=== PATIENT | male | born 1940 | race Caucasian/White ===

== ENCOUNTER 2016-06-30 09:20 | Inpatient (IN) | payer MEDICARE, BC ==
--- NOTE | 2016-06-30 09:54 | EDM.PDOC ---
[id number] 4d HEMATOMA ON RT LEG FROM THIGH TO KNEE STARTED ANGE Time Seen by Provider: 06/30/16 09:30 Source: Reports: Patient, Family History Limitations: Reports: No limitations - History of Present Illness INITIAL COMMENTS - FREE TEXT/NARRATIVE: 75-year-old male came in to the Coumadin clinic this morning for a routine pro time was feeling poorly, lightheaded and nauseous and has a persistent pain in his right thigh from a direct dramatic injury from a fall 5 days ago. His protime is 4.5, however with his lightheadedness and nauseous feeling he felt he should be seen in the emergency room. There is a small amount of bruising developing on the upper aspect of the injury. He is able to ambulate with discomfort. Occurred When: other (Injury occurred 5 days ago) Method of Injury: direct blow Severity: moderate Pain/Injury Location: Reports: lower extremity, right Consciousness: Reports: no loss of consciousness Associated Symptoms: Reports: lightheadedness, nausea/vomiting, trouble walking. Denies: abdominal pain Allergies/ADRs: Allergies lorazepam [From Ativan] Adverse Reaction (Severe, Verified 06/30/16 09:33) Change Mental Status Home Medications: Ambulatory Orders Aspirin [Aspirin EC] 81 mg PO DAILY 02/24/13 [Confirmed 06/30/16] Folic Acid 1 mg PO DAILY 02/24/13 [Confirmed 06/30/16] Metoprolol Tartrate [Lopressor] 25 mg PO DAILY 02/24/13 [Confirmed 06/30/16] Multivit with Calcium,Iron,Min [Essential Daily] 1 each PO DAILY 02/24/13 [ Confirmed 06/30/16] Ranitidine [Zantac] 150 mg PO DAILY 02/24/13 [Confirmed 06/30/16] Sertraline HCl 150 mg PO DAILY 02/24/13 [Confirmed 06/30/16] Thiamine [Vitamin B-1] 100 mg PO DAILY 02/24/13 [Confirmed 06/30/16] Timolol Maleate [Timoptic 0.5% Ophth Soln] 1 drop EYEBOTH BID 02/24/13 [ Confirmed 06/30/16] Warfarin Sodium 5 mg PO ASDIRECTED 02/24/13 [Confirmed 06/30/16] Warfarin Sodium 7.5 mg PO ASDIRECTED 02/24/13 [Confirmed 06/30/16] amLODIPine Besylate [Amlodipine Besylate] 10 mg PO DAILY 02/24/13 [Confirmed 06/13] clonazePAM [Clonazepam] 0.5 mg PO TID PRN 02/24/13 [Confirmed 06/30/16] Brimonidine Tartrate [Brimonidine Tartrate 0.2% Ophth Soln] 1 drop EYEBOTH BID 08/28/14 [Confirmed 06/30/16] Latanoprost [Xalatan 0.005% Ophth Soln] 1 drop EYEBOTH BID 08/28/14 [Confirmed 06/30/16] Moxifloxacin [Vigamox 0.5% Ophth Soln] 1 drop EYELF BID 12/12/15 [Confirmed 06/13] prednisoLONE Acetate [Prednisolone Acetate] 1 drop EYELF BID 12/12/15 [ Confirmed 06/30/16] Past Medical History HEENT History: Reports: Glaucoma 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- Cardiovascular History: Reports: Other (see below) Other Cardiovascular History: aortic dissection Gastrointestinal History: Reports: Other (see below) Other Gastrointestinal History: "Upset stomach easily" Musculoskeletal History: Reports: Arthritis, Fracture Psychiatric History: Reports: Anxiety, Panic attack Hematologic History: Reports: Blood transfusion(s) Dermatologic History: Reports: Psoriasis - Infectious Disease History Infectious Disease History: Reports: Chicken pox - Past Surgical History HEENT Surgical History: Reports: Eye surgery Cardiovascular Surgical History: Reports: Valve replacement, Other (see below) Other Cardiovascular Surgeries/Procedures: aortic graft Musculoskeletal Surgical History: Reports: Hip replacement Social & Family History - Family History Family Medical History: Noncontributory - Tobacco Use Smoking Status *Q: Current Every Day Smoker Years of Tobacco use: 10 Packs/Tins Daily: 0.2 Used Tobacco, but Quit: No Second Hand Smoke Exposure: No - Caffeine Use Caffeine Use: Reports: Coffee Other Caffeine Use: 2-3 cups a day - Alcohol Use Days Per Week of Alcohol Use: 5 Number of Drinks Per Day: 2 Total Drinks Per Week: 10 - Recreational Drug Use Recreational Drug Use: No Review of Systems - Review of Systems Review Of Systems: See Below Constitutional: Denies: fever Mouth/Throat: Reports: no symptoms Respiratory: Denies: Shortness of Breath Cardiovascular: Denies: chest pain GI/Abdominal: Reports: Nausea. Denies: Abdominal pain Musculoskeletal: Reports: leg pain Skin: Reports: pallor, diaphoresis Neurological: Reports: Difficulty Walking, Weakness Psychiatric: Reports: no symptoms Trauma Exam - Physical Exam Exam: See Below Exam Limited By: No limitations General Appearance: Reports: alert, no apparent distress Head: Reports: atraumatic Respiratory Exam: Reports: no respiratory distress Cardiovascular: Reports: regular rate, rhythm Extremities: Reports: other (The right quadricep is slightly swollen and tight with some upper bruising compared to the left. It is very tender to palpation.) Neurologic: Reports: other (Patient had a moderate vagal episode in the emergency waiting area with some pallor and diaphoresis and hypotension. After 10 minutes his blood pressure normalized to 100/60. His symptoms improved.) Skin: Reports: Diaphoresis, Pallor Course - Vital Signs Last Recorded V/S: Last Vital Signs Temp 98.8 F 06/30/16 15:56 Pulse 89 06/30/16 15:56 Resp 16 06/30/16 15:56 BP 103/68 06/30/16 15:56 Pulse Ox 98 06/30/16 15:56 Orthostatic Blood Pressure [ 101/41 Standing] Orthostatic Blood Pressure [ 103/62 Sitting] Orthostatic Blood Pressure [ 108/65 Supine] - Orders/Labs/Meds Orders: Medication Orders Acetaminophen (Tylenol) 650 mg PO Q4H [facility] Aspirin (Halfprin) 81 mg PO DAILY [facility] Brimonidine Tartrate (Alphagan 0.2% Ophth Soln) 0 ml EYEBOTH BID [facility] Diazepam (Valium) 2 mg PO Q4H [facility] Docusate Sodium (Colace) 100 mg PO BID PRN PRN Reason: Constipation Sodium Chloride (Normal Saline) 1,000 mls @ 125 mls/hr IV ASDIRECTED [facility] Latanoprost (Xalatan 0.005% Ophth Soln) 0 ml EYEBOTH BID [facility] Magnesium Hydroxide (Milk Of Magnesia) 30 ml PO Q12H PRN PRN Reason: Constipation Moxifloxacin HCl (Vigamox 0.5% Ophth Soln) 0 ml EYELF BID [facility] Nicotine (Habitrol) 7 mg TRDERM DAILY [facility] Nicotine (Nicotrol) 10 mg INH Q1H PRN PRN Reason: Other Ondansetron HCl (Zofran) 4 mg IV Q4H PRN PRN Reason: Nausea/Vomiting Polyethylene Glycol (Miralax) 17 gm PO DAILY PRN PRN Reason: Constipation Prednisolone Acetate (Pred Forte 1% Ophth Susp) 0 ml EYELF BID [facility] Ranitidine HCl (Zantac) 150 mg PO DAILY [facility] Sertraline HCl (Zoloft) 150 mg PO DAILY [facility] Sodium Chloride (Saline Flush) 10 ml FLUSH ASDIRECTED PRN PRN Reason: Keep Vein Open Timolol Maleate (Timoptic 0.5% Ophth Soln) 0 ml EYEBOTH BID [facility] Labs: Laboratory Tests 06/30/16 06/30/16 Range/Units 10:02 10:02 WBC 10.0 (4.5-11.0) K/uL RBC 3.12 L (4.30-5.90) M/uL Hgb 10.3 L (12.0-15.0) g/dL Hct 31.2 L (40.0-54.0) % MCV 100 H (80-98) fL MCH 33 H (27-31) pg MCHC 33 (32-36) % Plt Count 315 (150-400) K/uL Neut % (Auto) 78 H (36-66) % Lymph % (Auto) 9 L (24-44) % [place] % (Auto) 11 H (2-6) % Eos % (Auto) 1 L (2-4) % Baso % (Auto) 0 (0-1) % Sodium 135 L (140-148) mmol/L Potassium 4.2 (3.6-5.2) mmol/L Chloride 101 (100-108) mmol/L Carbon Dioxide 24 (21-32) mmol/L Anion Gap 14.2 H (5.0-14.0) mmol/L BUN 16 D (7-18) mg/dL Creatinine 1.4 H D (0.8-1.3) mg/dL Est Cr Clr Drug Dosing 52.19 mL/min Estimated GFR (MDRD) 49 L (>60) Glucose 105 (74-106) mg/dL Calcium 8.6 (8.5-10.1) mg/dL Meds: Medications Generic Name Dose Route Start Last Admin Trade Name Freq PRN Reason Stop Dose Admin Acetaminophen 650 mg 06/30/16 16:00 Tylenol PO Q4H [facility] Aspirin 81 mg 07/01/16 09:00 Halfprin PO DAILY [facility] Brimonidine Tartrate 0 ml 06/30/16 21:00 Alphagan 0.2% Ophth Soln EYEBOTH BID [facility] Diazepam 2 mg 06/30/16 19:00 Valium PO Q4H [facility] Docusate Sodium 100 mg 06/30/16 15:31 Colace PO BID PRN Constipation Sodium Chloride 1,000 mls @ 125 mls/hr 06/30/16 15:31 Normal Saline IV ASDIRECTED [facility] Latanoprost 0 ml 06/30/16 21:00 Xalatan 0.005% Ophth Soln EYEBOTH BID [facility] Magnesium Hydroxide 30 ml 06/30/16 15:31 Milk Of Magnesia PO Q12H PRN Constipation Moxifloxacin HCl 0 ml 06/30/16 21:00 Vigamox 0.5% Ophth Soln EYELF BID [facility] Nicotine 7 mg 06/30/16 16:00 Habitrol TRDERM DAILY [facility] Nicotine 10 mg 06/30/16 15:31 Nicotrol INH Q1H PRN Other Ondansetron HCl 4 mg 06/30/16 15:31 Zofran IV Q4H PRN Nausea/Vomiting Polyethylene Glycol 17 gm 06/30/16 15:31 Miralax PO DAILY PRN Constipation Prednisolone Acetate 0 ml 06/30/16 21:00 Pred Forte 1% Ophth Susp EYELF BID [facility] Ranitidine HCl 150 mg 07/01/16 09:00 Zantac PO DAILY [facility] Sertraline HCl 150 mg 07/01/16 09:00 Zoloft PO DAILY [facility] Sodium Chloride 10 ml 06/30/16 15:31 Saline Flush FLUSH ASDIRECTED PRN Keep Vein Open Timolol Maleate 0 ml 06/30/16 21:00 Timoptic 0.5% Ophth Soln EYEBOTH BID [facility] Discontinued Medications Generic Name Dose Route Start Last Admin Trade Name Freq PRN Reason Stop Dose Admin Acetaminophen 1,000 mg 06/30/16 13:57 06/30/16 14:34 Tylenol Extra Strength PO 06/30/16 13:58 1,000 mg ONETIME ONE Administration Acetaminophen 650 mg 06/30/16 14:30 Tylenol PO 06/30/16 14:31 NOW ONE Diazepam 2 mg 06/30/16 15:00 06/30/16 15:08 Valium PO 06/30/16 15:01 2 mg ONETIME ONE Administration Sodium Chloride 500 mls @ 1,000 mls/hr 06/30/16 10:45 06/30/16 10:41 Normal Saline IV 1,000 mls/hr ASDIRECTED [facility] Administration - Re-Assessments/Exams Free Text/Narrative Re-Assessment/Exam: 06/30/16 09:52 Patient hasn't vagal symptoms while in the waiting room and over the Coumadin clinic and his initial blood pressure was 79/46 so IV access was obtained. However he improved to 100/60 after just a few minutes. A CBC and BMP were obtained. 06/30/16 12:50 CBC revealed a hemoglobin of 10.3, compared to 13 5 months ago. Blood pressure continued to fluctuate between 80 and 100 systolic. GFR was 49 which is lower than his previous levels. 06/30/16 16:04 After 500 mL bolus of normal saline, orthostatic blood pressures were obtained and his pulse went from 70 to lying to [address] Kwan of the hospitalist service to assess the patient for admission for orthostatic hypotension, leg hematoma and anemia. Departure - Departure Time of Disposition: 15:48 Disposition: Admitted As Inpatient 65 Condition: fair Clinical Impression: Orthostatic hypotension Hematoma of right lower extremity Qualifiers: Encounter type: initial encounter Qualified Code(s): S80.11XA - Contusion of right lower leg, initial encounter Anemia Qualifiers: Anemia type: unspecified type Qualified Code(s): D64.9 - Anemia, unspecified
[2016-06-30] MEDS ORDERED: Sodium Chloride 0.9% 500 ML IV SCH (10:45)
[2016-06-30] MEDS ORDERED: Acetaminophen 500 MG Tab PO ONE (13:57)
[2016-06-30] MEDS ORDERED: Acetaminophen 325 MG Tab PO ONE (14:30)
--- NOTE | 2016-06-30 14:49 | PCM.HP ---
H&P History of Present Illness - General Date of Service: 06/30/16 Admit Problem/Dx: Admission Diagnosis/Problem Admission Diagnosis/Problem Hematoma Source of Information: Patient, Family, Old records, Provider History Limitations: Reports: No limitations - History of Present Illness Initial Comments - Free Text/Narative: This patient is a 75-year-old gentleman admitted through the emergency department with weakness, lightheadedness, and hypotension secondary to a large hematoma of his right leg. 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 5 days ago he fell while getting out of bed and hit his right leg, the past 5 days since the injury he's had progressive swelling and pain in his right thigh. He presented to the Coumadin clinic this morning and his INR was found to be elevated at greater than 4. He was referred to the emergency department and on laboratory testing was found to have a significant decrease in hemoglobin since his last outpatient tests. He' s received some IV fluids but remains weak and lightheaded , with a persistent drop in orthostatic blood pressure. Right Leg Pain Score (Numeric/FACES): 7 - Related Data Allergies/Adverse Reactions: Allergies Allergy/AdvReac Type Severity Reaction Status Date / Time lorazepam [From Ativan] AdvReac Severe Change Verified 06/30/16 09:33 Mental Status Home Medications: Home Meds Aspirin [Aspirin EC] 81 mg PO DAILY 02/24/13 [History] Folic Acid 1 mg PO DAILY 02/24/13 [History] Metoprolol Tartrate [Lopressor] 25 mg PO DAILY 02/24/13 [History] Multivit with Calcium,Iron,Min [Essential Daily] 1 each PO DAILY 02/24/13 [ History] Ranitidine [Zantac] 150 mg PO DAILY 02/24/13 [History] Sertraline HCl 150 mg PO DAILY 02/24/13 [History] Thiamine [Vitamin B-1] 100 mg PO DAILY 02/24/13 [History] Timolol Maleate [Timoptic 0.5% Ophth Soln] 1 drop EYEBOTH BID 02/24/13 [History] Warfarin Sodium 5 mg PO ASDIRECTED 02/24/13 [History] Warfarin Sodium 7.5 mg PO ASDIRECTED 02/24/13 [History] amLODIPine Besylate [Amlodipine Besylate] 10 mg PO DAILY 02/24/13 [History] clonazePAM [Clonazepam] 0.5 mg PO TID PRN 02/24/13 [History] Brimonidine Tartrate [Brimonidine Tartrate 0.2% Ophth Soln] 1 drop EYEBOTH BID 08/28/14 [History] Latanoprost [Xalatan 0.005% Ophth Soln] 1 drop EYEBOTH BID 08/28/14 [History] Moxifloxacin [Vigamox 0.5% Ophth Soln] 1 drop EYELF BID 12/12/15 [History] prednisoLONE Acetate [Prednisolone Acetate] 1 drop EYELF BID 12/12/15 [History] Past Medical History HEENT History: Reports: Glaucoma 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- Cardiovascular History: Reports: Other (see below) Other Cardiovascular History: aortic dissection Gastrointestinal History: Reports: Other (see below) Other Gastrointestinal History: "Upset stomach easily" Musculoskeletal History: Reports: Arthritis, Fracture Psychiatric History: Reports: Anxiety, Panic attack Hematologic History: Reports: Blood transfusion(s) Dermatologic History: Reports: Psoriasis - Infectious Disease History Infectious Disease History: Reports: Chicken pox - Past Surgical History HEENT Surgical History: Reports: Eye surgery Cardiovascular Surgical History: Reports: Valve replacement, Other (see below) Other Cardiovascular Surgeries/Procedures: aortic graft Musculoskeletal Surgical History: Reports: Hip replacement Social & Family History - Family History Family Medical History: Noncontributory - Tobacco Use Smoking Status *Q: Current Every Day Smoker Years of Tobacco use: 10 Packs/Tins Daily: 0.2 Used Tobacco, but Quit: No Second Hand Smoke Exposure: No - Caffeine Use Caffeine Use: Reports: Coffee Other Caffeine Use: 2-3 cups a day - Alcohol Use Days Per Week of Alcohol Use: 5 Number of Drinks Per Day: 2 Total Drinks Per Week: 10 - Recreational Drug Use Recreational Drug Use: No H&P Review of Systems - Review of Systems: Review Of Systems: See Below General: Reports: weakness. Denies: fever, chills HEENT: Reports: no symptoms Pulmonary: Reports: No Symptoms Cardiovascular: Reports: lightheadedness. Denies: chest pain, palpitations, dyspnea on exertion, orthopnea, PND, edema Gastrointestinal: Reports: No symptoms Genitourinary: Reports: no symptoms Musculoskeletal: Reports: leg pain Skin: Reports: no symptoms Psychiatric: Reports: no symptoms Neurological: Reports: No Symptoms Hematologic/Lymphatic: Reports: no symptoms Immunologic: Reports: no symptoms Exam - Exam Exam: See Below - Vital Signs Vital Signs: Last Vital Signs Temp 97.7 F 06/30/16 09:44 Pulse 72 06/30/16 13:57 Resp 15 06/30/16 13:57 BP 97/60 06/30/16 13:57 Pulse Ox 91 L 06/30/16 13:57 Orthostatic Blood Pressure [ 101/41 Standing] Orthostatic Blood Pressure [ 103/62 Sitting] Orthostatic Blood Pressure [ 108/65 Supine] Weight: 185 lb - Exam Quality Assessment: DVT prophylaxis General: alert, oriented, cooperative HEENT: Conjunctiva clear, EOMI, Hearing intact, Mucosa moist & pink, Nares patent, Normal nasal septum, Posterior pharynx clear, Pupils equal, Pupils reactive Neck: supple, trachea midline, +2 carotid pulse wo bruit Lungs: Clear to auscultation, Normal respiratory effort Cardiovascular: regular rate, regular rhythm, normal S1, normal S2, systolic murmur. No: diastolic murmur Abdomen: normal bowel sounds, soft Back Exam: normal inspection, full range of motion, NT Extremities: 3, normal inspection, 10 Skin: warm, dry, intact Neurological: cranial nerves intact, strength equal bilateral, normal speech, normal tone, sensation intact. No: focal deficit Neuro Extensive - Mental Status: alert, oriented x3, normal mood/affect, normal cognition, memory intact - Patient Data Lab Results last 24 hrs: Laboratory Results - last 24 hr 06/30/16 06/30/16 Range/Units 10:02 10:02 WBC 10.0 (4.5-11.0) K/uL RBC 3.12 L (4.30-5.90) M/uL Hgb 10.3 L (12.0-15.0) g/dL Hct 31.2 L (40.0-54.0) % MCV 100 H (80-98) fL MCH 33 H (27-31) pg MCHC 33 (32-36) % Plt Count 315 (150-400) K/uL Neut % (Auto) 78 H (36-66) % Lymph % (Auto) 9 L (24-44) % [place] % (Auto) 11 H (2-6) % Eos % (Auto) 1 L (2-4) % Baso % (Auto) 0 (0-1) % Sodium 135 L (140-148) mmol/L Potassium 4.2 (3.6-5.2) mmol/L Chloride 101 (100-108) mmol/L Carbon Dioxide 24 (21-32) mmol/L Anion Gap 14.2 H (5.0-14.0) mmol/L BUN 16 D (7-18) mg/dL Creatinine 1.4 H D (0.8-1.3) mg/dL Est Cr Clr Drug Dosing 52.19 mL/min Estimated GFR (MDRD) 49 L (>60) Glucose 105 (74-106) mg/dL Calcium 8.6 (8.5-10.1) mg/dL Result Diagrams: 06/30/16 10:02 06/30/16 10:02 *Q Meaningful Use (ADM) - VTE *Q VTE Criteria *Q: VTE Pharmacological Contraindications *Q: High INR Value - VTE Risk Assess *Q Each Risk Factor Represents 1 Point: History of Prior Major Surgery Total Score 1 Point Risk Factors: 1 Each Risk Factor Represents 2 Points: None Total Score 2 Point Risk Factors: 0 Each Risk Factor Represents 3 Points: Age 75 Years or Greater Total Score 3 Point Risk Factors: 3 Each Risk Factor Represents 5 Points: None Total Score 5 Point Risk Factors: 0 Venous Thromboembolism Risk Factor Score *Q: 4 - Stroke *Q Stroke Criteria *Q: - AMI *Q AMI Criteria *Q: Problem List Initiated/Reviewed/Updated: Yes Orders Last 24hrs: Active Orders 24 hr Category Date Time Status Patient Status Manage Transfer [TRANSFER] Routine ADT 06/30/16 14:32 Active Diazepam [Valium] Med 06/30/16 15:00 Once 2 mg PO ONETIME ONE Sodium Chloride 0.9% [Normal Saline] 500 ml Med 06/30/16 10:45 Active IV ASDIRECTED Resuscitation Status Routine Resus Stat 06/30/16 14:34 Ordered Medication Orders Diazepam (Valium) 2 mg PO ONETIME ONE Stop: 06/30/16 15:01 Sodium Chloride (Normal Saline) 500 mls @ 1,000 mls/hr IV ASDIRECTED [facility] Last Admin: 06/30/16 10:41 Dose: 1,000 mls/hr Assessment/Plan Comment:: ASSESSMENT AND PLAN LARGE RIGHT LEG HEMATOMA-likely has had ongoing bleeding over the past 5 days resulting in increased pain in the right leg as well as intravascular volume depletion and anemia. This morning was significantly weak and lightheaded, despite initial fluids in the emergency department he continues to experience significant orthostasis and weakness. We discussed management including ultrasound of the leg as well as surgical consult for possible debridement/ drainage. Patient does not want to consider these options, but is willing to discuss it further if there is evidence of ongoing bleeding or significant vascular compromise of the leg. -IV fluids for hydration -Serial hemoglobin levels -Physical therapy consult CHRONIC ANTICOAGULATION-use for management of a prosthetic mechanical heart felt. INR checked at the Coumadin clinic this morning and was found to be supratherapeutic. -Hold warfarin today -Recheck INR in the a.m. GENERALIZED WEAKNESS-likely secondary to anemia and intravascular volume depletion -Management as above MAINTENANCE ISSUES -DVT prophylaxis; current therapy with warfarin should provide adequate DVT prophylaxis -GI prophylaxis; continue outpatient H2 anayeli therapy -Rojas catheter; not indicated -Nutrition; regular diet -Nicotine dependence; 7 mg nicotinic patch CODE STATUS-full code ADMISSION STATUS-patient will be admitted to inpatient status, expect at least a 2 night hospital stay for evaluation and management of problems as outlined above. At the time of this admission I do not reasonably expected evaluation and management of this problem will require more than a 96 hour hospital stay. DISPOSITION-anticipate discharge to home after the hospital stay. PRIMARY CARE PROVIDER-Christopher Martinez
[2016-06-30] MEDS ORDERED: Diazepam 2 MG Tab PO ONE (15:00)
[2016-06-30] MEDS ORDERED: Ondansetron 4 MG/2 ML SDV IV PRN (15:31)
[2016-06-30] MEDS ORDERED: Nicotine 10 MG/Cartridge Inhaler 168 Cartridges/Box INH PRN (15:31)
[2016-06-30] MEDS ORDERED: Polyethylene Glycol 3350 Powder 17 GM Packet PO PRN (15:31)
[2016-06-30] MEDS ORDERED: Sodium Chloride 0.9% 1,000 ML IV SCH (15:31)
[2016-06-30] MEDS ORDERED: Magnesium Hydroxide 400 MG/5 ML Susp 30 ML Cup PO PRN (15:31)
[2016-06-30] MEDS ORDERED: Sodium Chloride 0.9% 10 ML Syringe FLUSH PRN (15:31)
[2016-06-30] MEDS ORDERED: Docusate Sodium 100 MG Cap PO PRN (15:31)
[2016-06-30] MEDS: Acetaminophen 325 MG Tab PO SCH ×3 (16:21→23:52)
[2016-06-30] MEDS: Nicotine 7 MG/24 Hr Patch TRDERM SCH (17:23)
[2016-06-30] MEDS: Brimonidine/Timolol 0.2%/0.5% Ophth Soln 5 ML Bottle EYELF SCH (17:25)
[2016-06-30] MEDS: DIFLUPREDNATE 0.05% EYELF SCH (17:28)
[2016-06-30] MEDS: Calcium Carbonate 500 MG Tab.Chew PO PRN (18:04)
[2016-06-30] MEDS: Diazepam 2 MG Tab PO SCH ×2 (19:18→22:00)
[2016-06-30] MEDS ORDERED: Moxifloxacin 0.5% Ophth Soln 3 ML Bottle EYELF SCH (21:00)
[2016-06-30] MEDS ORDERED: Timolol Maleate 0.5% Ophth Soln 5 ML Bottle EYEBOTH SCH (21:00)
[2016-06-30] MEDS ORDERED: prednisoLONE Acetate 1% Ophth Susp 10 ML Bottle EYELF SCH (21:00)
[2016-06-30] MEDS ORDERED: Brimonidine 0.2% Ophth Soln 5 ML Bottle EYEBOTH SCH (21:00)
[2016-06-30] MEDS: Latanoprost 0.005% Ophth Soln 2.5 ML Bottle EYELF SCH (22:00)
[2016-07-01] MEDS: Diazepam 2 MG Tab PO SCH ×3 (02:29→12:00)
[2016-07-01] MEDS: Acetaminophen 325 MG Tab PO SCH ×5 (05:12→20:02)
[2016-07-01] MEDS: Calcium Carbonate 500 MG Tab.Chew PO PRN (05:13)
[2016-07-01] MEDS: Brimonidine/Timolol 0.2%/0.5% Ophth Soln 5 ML Bottle EYELF SCH ×2 (08:58→14:33)
[2016-07-01] MEDS: DIFLUPREDNATE 0.05% EYELF SCH ×2 (08:58→14:33)
[2016-07-01] MEDS: Aspirin 81 MG Tab.EC PO SCH (09:00)
[2016-07-01] MEDS: Sertraline 50 MG Tab PO SCH (09:01)
[2016-07-01] MEDS: Nicotine 7 MG/24 Hr Patch TRDERM SCH (09:02)
[2016-07-01] MEDS ORDERED: HYDROmorphone 0.5 MG/0.5 ML Syringe IVPUSH PRN (12:25)
[2016-07-01] MEDS ORDERED: Warfarin 2.5 MG Tab PO ONE (13:30)
--- NOTE | 2016-07-01 13:54 | CR ---
Knee 3V Rt HISTORY: Persistent pain after a fall one week ago FINDINGS: No acute fracture or dislocation is identified. Bony structures are osteopenic. No joint space narro wing is noted. I see no joint effusion. Benign bone island is noted medial tibial plateau.. Soft ti ssues are unremarkable. IMPRESSION: No acute right knee abnormality identified. Possible osteopenia. Small benign bone islands medial ti bial plateau.
--- NOTE | 2016-07-01 13:55 | CR ---
Femur Min 2V Rt HISTORY: Persistent pain after a fall one week ago FINDINGS: No acute fracture or dislocation is identified. Bony architecture is preserved. Right total hip art hroplasty is noted. I see no evidence for loosening or other complication. There is no joint effusio n. Soft tissues are unremarkable. IMPRESSION: Right total hip arthroplasty. No fracture or other acute right femur abnormality identified.
[2016-07-01] MEDS: diphenhydrAMINE 25 MG Cap PO PRN ×2 (14:10→20:46)
[2016-07-01] MEDS: Diazepam 2 MG Tab PO PRN ×2 (14:11→20:46)
--- NOTE | 2016-07-01 17:40 | PCM.PN ---
- General Info Date of Service: 07/01/16 Functional Status: Reports: pain controlled, tolerating diet, ambulating, urinating - Review of Systems General: Reports: Weakness. Denies: Fever, Chills Pulmonary: Reports: no symptoms Cardiovascular: Reports: No Symptoms Gastrointestinal: Reports: No symptoms Musculoskeletal: Reports: leg pain Systems Review Comment:: This patient continues to experience right leg pain related to his hematoma. Hemoglobin has been stable since admission, showing no further evidence of active bleeding. Vital signs have been stable and he has remained afebrile. Because of ongoing pain with weightbearing x-rays of the right leg and knee have been obtained showing no acute fractures. - Patient Data Vitals - most recent: Last Vital Signs Temp 98.2 F 07/01/16 13:58 Pulse 93 07/01/16 13:58 Resp 16 07/01/16 13:58 BP 128/69 07/01/16 13:58 Pulse Ox 97 07/01/16 13:58 Weight - most recent: 186 lb 4.65 oz I&O - last 24 hours: Intake & Output 07/01/16 07/01/16 07/01/16 06:59 14:59 22:59 Intake Total 2907 400 1362 Output Total 875 1100 850 Balance 2032 -700 512 Lab Results last 24 hrs: Laboratory Results - last 24 hr 06/30/16 07/01/16 07/01/16 Range/Units 20:23 02:54 04:50 WBC 7.1 (4.5-11.0) K/uL RBC 2.78 L (4.30-5.90) M/uL Hgb 9.7 L 9.2 L (12.0-15.0) g/dL Hct 28.2 L (40.0-54.0) % MCV 101 H (80-98) fL MCH 33 H (27-31) pg MCHC 33 (32-36) % Plt Count 292 (150-400) K/uL Neut % (Auto) 71 H (36-66) % Lymph % (Auto) 15 L (24-44) % [place] % (Auto) 12 H (2-6) % Eos % (Auto) 2 (2-4) % Baso % (Auto) 1 (0-1) % PT (9.5-12.0) sec INR (0.80-1.20) Sodium (140-148) mmol/L Potassium (3.6-5.2) mmol/L Chloride (100-108) mmol/L Carbon Dioxide (21-32) mmol/L Anion Gap (5.0-14.0) mmol/L BUN (7-18) mg/dL Creatinine (0.8-1.3) mg/dL Est Cr Clr Drug Dosing mL/min Estimated GFR (MDRD) (>60) Glucose (74-106) mg/dL Calcium (8.5-10.1) mg/dL Urine Color Yellow Urine Appearance Clear Urine pH 6.5 (4.5-8.0) Ur Specific [place] 1.015 (1.008-1.030) Urine Protein Negative (NEGATIVE) mg/dL Urine Glucose (UA) Normal (NEGATIVE) mg/dL Urine Ketones Negative (NEGATIVE) mg/dL Urine Occult Blood Negative (NEGATIVE) Urine Nitrite Negative (NEGAITVE) Urine Bilirubin Negative (NEGATIVE) Urine Urobilinogen Normal (NORMAL) mg/dL Ur Leukocyte Esterase Negative (NEGATIVE) Urine RBC 0-5 (0-5) Urine WBC 0-5 (0-5) Ur Epithelial Cells Rare Amorphous Sediment Not seen Urine Bacteria Rare Urine Mucus Not seen 07/01/16 07/01/16 Range/Units 04:50 04:50 WBC (4.5-11.0) K/uL RBC (4.30-5.90) M/uL Hgb (12.0-15.0) g/dL Hct (40.0-54.0) % MCV (80-98) fL MCH (27-31) pg MCHC (32-36) % Plt Count (150-400) K/uL Neut % (Auto) (36-66) % Lymph % (Auto) (24-44) % [place] % (Auto) (2-6) % Eos % (Auto) (2-4) % Baso % (Auto) (0-1) % PT 24.0 H (9.5-12.0) sec INR 2.21 H (0.80-1.20) Sodium 140 (140-148) mmol/L Potassium 3.9 (3.6-5.2) mmol/L Chloride 107 (100-108) mmol/L Carbon Dioxide 24 (21-32) mmol/L Anion Gap 9.1 (5.0-14.0) mmol/L BUN 13 (7-18) mg/dL Creatinine 1.1 (0.8-1.3) mg/dL Est Cr Clr Drug Dosing 66.42 mL/min Estimated GFR (MDRD) > 60 (>60) Glucose 106 (74-106) mg/dL Calcium 8.3 L (8.5-10.1) mg/dL Urine Color Urine Appearance Urine pH (4.5-8.0) Ur Specific [place] (1.008-1.030) Urine Protein (NEGATIVE) mg/dL Urine Glucose (UA) (NEGATIVE) mg/dL Urine Ketones (NEGATIVE) mg/dL Urine Occult Blood (NEGATIVE) Urine Nitrite (NEGAITVE) Urine Bilirubin (NEGATIVE) Urine Urobilinogen (NORMAL) mg/dL Ur Leukocyte Esterase (NEGATIVE) Urine RBC (0-5) Urine WBC (0-5) Ur Epithelial Cells Amorphous Sediment Urine Bacteria Urine Mucus Med Orders - Current: Current Medications Acetaminophen (Tylenol) 650 mg PO Q4H [facility] Last Admin: 07/01/16 16:18 Dose: 650 mg Aspirin (Halfprin) 81 mg PO DAILY [facility] Last Admin: 07/01/16 09:00 Dose: 81 mg Brimonidine/Timolol (Combigan 0.2%/0.5% Ophth Soln) 0 ml EYELF BID@0800,1500 [facility] Last Admin: 07/01/16 14:33 Dose: 1 drop Calcium Carbonate/Glycine (Tums) 500 mg PO Q2H PRN PRN Reason: Indigestion Last Admin: 07/01/16 05:13 Dose: 500 mg Diazepam (Valium) 4 mg PO Q4H PRN PRN Reason: Anxiety Last Admin: 07/01/16 14:11 Dose: 4 mg Diphenhydramine HCl (Benadryl) 50 mg PO Q6H PRN PRN Reason: Insomnia Last Admin: 07/01/16 14:10 Dose: 50 mg Docusate Sodium (Colace) 100 mg PO BID PRN PRN Reason: Constipation Hydromorphone HCl (Dilaudid) 0.5 mg IVPUSH Q2H PRN PRN Reason: Pain Latanoprost (Xalatan 0.005% Ophth Soln) 0 ml EYELF BEDTIME [facility] Last Admin: 06/30/16 22:00 Dose: 1 drop Magnesium Hydroxide (Milk Of Magnesia) 30 ml PO Q12H PRN PRN Reason: Constipation Nicotine (Habitrol) 7 mg TRDERM DAILY [facility] Last Admin: 07/01/16 09:02 Dose: 7 mg Nicotine (Nicotrol) 10 mg INH Q1H PRN PRN Reason: Other Ondansetron HCl (Zofran) 4 mg IV Q4H PRN PRN Reason: Nausea/Vomiting Diflprednate Ophth ( Durezol) 0.05%Pom* * 0 each EYELF BID@0800,1500 [facility] Last Admin: 07/01/16 14:33 Dose: 1 each Polyethylene Glycol (Miralax) 17 gm PO DAILY PRN PRN Reason: Constipation Ranitidine HCl (Zantac) 150 mg PO DAILY [facility] Last Admin: 07/01/16 09:00 Dose: 150 mg Sertraline HCl (Zoloft) 150 mg PO DAILY [facility] Last Admin: 07/01/16 09:01 Dose: 150 mg Sodium Chloride (Saline Flush) 10 ml FLUSH ASDIRECTED PRN PRN Reason: Keep Vein Open Discontinued Medications Acetaminophen (Tylenol Extra Strength) 1,000 mg PO ONETIME ONE Stop: 06/30/16 13:58 Last Admin: 06/30/16 14:34 Dose: 1,000 mg Acetaminophen (Tylenol) 650 mg PO NOW ONE Stop: 06/30/16 14:31 Last Admin: 06/30/16 21:54 Dose: Not Given Diazepam (Valium) 2 mg PO ONETIME ONE Stop: 06/30/16 15:01 Last Admin: 06/30/16 15:08 Dose: 2 mg Diazepam (Valium) 2 mg PO Q4H [facility] Last Admin: 07/01/16 12:00 Dose: 2 mg Sodium Chloride (Normal Saline) 500 mls @ 1,000 mls/hr IV ASDIRECTED [facility] Last Admin: 06/30/16 10:41 Dose: 1,000 mls/hr Sodium Chloride (Normal Saline) 1,000 mls @ 125 mls/hr IV ASDIRECTED [facility] Last Admin: 06/30/16 23:39 Dose: 125 mls/hr Warfarin Sodium (Coumadin) 7.5 mg PO ONETIME ONE Stop: 07/01/16 13:31 Last Admin: 07/01/16 14:10 Dose: 7.5 mg - Exam Quality Assessment: DVT prophylaxis General: alert, oriented, cooperative, mild distress Lungs: Clear to auscultation, Normal respiratory effort Cardiovascular: Regular Rate, Regular Rhythm, No Murmurs Abdomen: bowel sounds present, soft, no tenderness, no distension Extremities: edema, other (Pain and swelling right leg) Skin: warm, dry, intact, ecchymosis - Problem List Review Problem List Initiated/Reviewed/Updated: Yes - My Orders Last 24 Hours: My Active Orders 06/30/16 17:43 Calcium Carbonate [Tums] 500 mg PO Q2H PRN 06/30/16 18:00 Brimonidine/Timolol [Combigan 0.2%/0.5% Ophth Soln] 0 ml EYELF BID@0800,1500 Patient's Own Medication [Ptom] 0 each EYELF BID@0800,1500 07/01/16 12:20 diphenhydrAMINE [Benadryl] 50 mg PO Q6H PRN Convert IV to Saline Lock [OM.PC] Routine 07/01/16 12:21 Diazepam [Valium] 4 mg PO Q4H PRN 07/01/16 12:25 HYDROmorphone [Dilaudid] 0.5 mg IVPUSH Q2H PRN 07/02/16 05:00 BASIC METABOLIC PANEL,BMP [CHEM] Timed CBC WITH AUTO DIFF [HEME] Timed 07/02/16 05:11 INR,PT,PROTHROMBIN TIME [COAG] AM - Plan Plan:: ASSESSMENT AND PLAN LARGE RIGHT LEG HEMATOMA-table since admission with no further evidence of active bleeding, x-rays of the leg showed no evidence of acute fracture related to his recent fall. -Saline lock IV -Serial hemoglobin levels -Physical therapy consult CHRONIC ANTICOAGULATION-use for management of a prosthetic mechanical heart valve. INR is now within therapeutic range at 2.2 -Warfarin 7.5 mg by mouth today -Recheck INR in the a.m. GENERALIZED WEAKNESS-likely secondary to anemia and intravascular volume depletion -Management as above MAINTENANCE ISSUES -DVT prophylaxis; current therapy with warfarin should provide adequate DVT prophylaxis -GI prophylaxis; continue outpatient H2 anayeli therapy -Rojas catheter; not indicated -Nutrition; regular diet -Nicotine dependence; 7 mg nicotine patch CODE STATUS-full code ADMISSION STATUS-patient will be admitted to inpatient status, expect at least a 2 night hospital stay for evaluation and management of problems as outlined above. At the time of this admission I do not reasonably expected evaluation and management of this problem will require more than a 96 hour hospital stay. DISPOSITION-anticipate discharge to home after the hospital stay. PRIMARY CARE PROVIDER-Christopher Martinez
[2016-07-01] MEDS: Latanoprost 0.005% Ophth Soln 2.5 ML Bottle EYELF SCH (20:46)
[2016-07-02] MEDS: Acetaminophen 325 MG Tab PO SCH ×3 (01:05→07:40)
[2016-07-02] MEDS: Diazepam 2 MG Tab PO PRN (04:02)
[2016-07-02] MEDS: diphenhydrAMINE 25 MG Cap PO PRN (04:02)
[2016-07-02] MEDS: Brimonidine/Timolol 0.2%/0.5% Ophth Soln 5 ML Bottle EYELF SCH (07:37)
[2016-07-02] MEDS: DIFLUPREDNATE 0.05% EYELF SCH (07:39)
[2016-07-02 10:39] VITALS: BP 100/60
--- NOTE | 2016-07-02 11:23 | PCM.DCSUM1 ---
Discharge Summary - Hospital Course Brief History: Is patient is a 75-year-old gentleman who was admitted through the emergency department with severe pain and swelling of his right thigh secondary to a hematoma. - Discharge Data Discharge Date: 07/02/16 Discharge Disposition: Home, Self-Care 01 Condition: Fair - Discharge Diagnosis/Problem(s) (1) Hematoma of right lower extremity SNOMED Code(s): 112066646 ICD Code: S80.11XA - CONTUSION OF RIGHT LOWER LEG, INITIAL ENCOUNTER Status : Acute Current Visit: Yes Qualifiers: Encounter type: initial encounter Qualified Code(s): S80.11XA - Contusion of right lower leg, initial encounter (2) Anemia SNOMED Code(s): 705235584 ICD Code: D64.9 - ANEMIA, UNSPECIFIED Status: Acute Current Visit: Yes Qualifiers: Anemia type: unspecified type Qualified Code(s): D64.9 - Anemia, unspecified - Patient Summary/Data Consults: Consultations 06/30/16 15:31 PT Evaluation and Treatment [CONS] Routine Please Evaluate and Treat. PT Reason for Consult: Limited mobility secondary to a hematoma of the right leg This query below is only for informational purposes and is not editable. Hospital Course: Mr. Fletcher is a 75-year-old gentleman who was admitted through the emergency department with severe pain and swelling of his right thigh secondary to a hematoma. 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 About 5 days prior to admission he fell hitting his right thigh on bedside table. Over the next 5 days he had progressive increase in swelling and pain in his right thigh and knee. Symptoms became so severe that he was unable to ambulate and was brought into the emergency department for further evaluation. His hemoglobin had dropped approximately 3 g since his last outpatient hemoglobin level. We discussed further evaluation with ultrasound and surgical consult for possible surgical debridement which the patient refused. He was admitted and initially given IV fluids for hydration. With hydration his hemoglobin dropped an additional gram, which was felt to be dilutional. Bone remained stable throughout the rest of his hospital stay with no further drop. He was seen and evaluated by physical therapy and by the time of discharge was able to ambulate with use of a walker. Activity will be as tolerated and he will be scheduled for outpatient physical therapy after discharge. He will resume his usual diet and a followup appointment will be scheduled with his primary care provider within one week. Hemoglobin level will be obtained at the time of that followup appointment. INR was monitored throughout his hospital stay and initially INR was supratherapeutic. Warfarin was held the first day of his hospital stay in the next day his INR was 2.2. He's been started back on warfarin and has a followup appointment in the Coumadin clinic in 2 days time. - Patient Instructions Diet: Usual Diet as Tolerated Activity: As Tolerated Other/Special Instructions: Please schedule outpatient physical therapy, 3 times weekly or 2 weeks. Please schedule followup appointment with primary care provider within one week. Lab to be obtained at the time of followup appointment, CBC. - Discharge Plan Prescriptions/Med Rec: Nicotine [Nicotine Patch] 1 patch TD DAILY #30 patch Home Medications: Home Meds Aspirin [Aspirin EC] 81 mg PO DAILY 02/24/13 [History] Folic Acid 1 mg PO DAILY 02/24/13 [History] Metoprolol Tartrate [Lopressor] 25 mg PO DAILY 02/24/13 [History] Multivit with Calcium,Iron,Min [Essential Daily] 1 each PO DAILY 02/24/13 [ History] Ranitidine [Zantac] 150 mg PO DAILY 02/24/13 [History] Sertraline HCl 150 mg PO DAILY 02/24/13 [History] Thiamine [Vitamin B-1] 100 mg PO DAILY 02/24/13 [History] Warfarin Sodium 5 mg PO ASDIRECTED 02/24/13 [History] Warfarin Sodium 7.5 mg PO ASDIRECTED 02/24/13 [History] amLODIPine Besylate [Amlodipine Besylate] 10 mg PO DAILY 02/24/13 [History] clonazePAM [Clonazepam] 0.5 mg PO TID PRN 02/24/13 [History] Brimonidine Tartrate [Brimonidine Tartrate 0.2% Ophth Soln] 1 drop EYEBOTH BID 08/28/14 [History] Brimonidine/Timolol [Combigan 0.2%/0.5% Ophth Soln] 1 drp EYEBOTH BID 06/30/16 [ History] Acetaminophen [Tylenol] 650 mg PO Q4H tablet 07/02/16 [Rx] Nicotine [Nicotine Patch] 1 patch TD DAILY #30 patch 07/02/16 [Rx] Referrals: Christopher Martinez PA [Primary Care Provider] - - Patient Data Vitals - Most Recent: Last Vital Signs Temp 98.4 F 07/02/16 10:38 Pulse 87 07/02/16 10:38 Resp 18 07/02/16 10:38 BP 100/60 07/02/16 10:38 Pulse Ox 99 07/02/16 10:38 Weight - Most Recent: 186 lb 4.65 oz I&O - Last 24 hours: Intake & Output 07/01/16 07/02/16 07/02/16 22:59 06:59 14:59 Intake Total 1842 240 Output Total 1530 600 500 Balance 312 -600 -260 Lab Results - Last 24 hrs: Laboratory Results - last 24 hr 07/02/16 07/02/16 07/02/16 Range/Units 05:57 05:57 05:57 WBC 6.7 (4.5-11.0) K/uL RBC 2.79 L (4.30-5.90) M/uL Hgb 9.2 L (12.0-15.0) g/dL Hct 28.3 L (40.0-54.0) % MCV 101 H (80-98) fL MCH 33 H (27-31) pg MCHC 33 (32-36) % Plt Count 340 (150-400) K/uL Neut % (Auto) 67 H (36-66) % Lymph % (Auto) 16 L (24-44) % [place] % (Auto) 13 H (2-6) % Eos % (Auto) 3 (2-4) % Baso % (Auto) 1 (0-1) % PT 21.3 H (9.5-12.0) sec INR 1.97 H (0.80-1.20) Sodium 138 L (140-148) mmol/L Potassium 3.9 (3.6-5.2) mmol/L Chloride 105 (100-108) mmol/L Carbon Dioxide 25 (21-32) mmol/L Anion Gap 11.9 (5.0-14.0) mmol/L BUN 10 (7-18) mg/dL Creatinine 1.0 (0.8-1.3) mg/dL Est Cr Clr Drug Dosing 73.07 mL/min Estimated GFR (MDRD) > 60 (>60) Glucose 103 (74-106) mg/dL Calcium 8.5 (8.5-10.1) mg/dL Med Orders - Current: Current Medications Acetaminophen (Tylenol) 650 mg PO Q4H [facility] Last Admin: 07/02/16 07:40 Dose: 650 mg Aspirin (Halfprin) 81 mg PO DAILY [facility] Last Admin: 07/01/16 09:00 Dose: 81 mg Brimonidine/Timolol (Combigan 0.2%/0.5% Ophth Soln) 0 ml EYELF BID@0800,1500 [facility] Last Admin: 07/02/16 07:37 Dose: 1 drop Calcium Carbonate/Glycine (Tums) 500 mg PO Q2H PRN PRN Reason: Indigestion Last Admin: 07/01/16 05:13 Dose: 500 mg Diazepam (Valium) 4 mg PO Q4H PRN PRN Reason: Anxiety Last Admin: 07/02/16 04:02 Dose: 4 mg Diphenhydramine HCl (Benadryl) 50 mg PO Q6H PRN PRN Reason: Insomnia Last Admin: 07/02/16 04:02 Dose: 50 mg Docusate Sodium (Colace) 100 mg PO BID PRN PRN Reason: Constipation Hydromorphone HCl (Dilaudid) 0.5 mg IVPUSH Q2H PRN PRN Reason: Pain Latanoprost (Xalatan 0.005% Ophth Soln) 0 ml EYELF BEDTIME [facility] Last Admin: 07/01/16 20:46 Dose: 1 drop Magnesium Hydroxide (Milk Of Magnesia) 30 ml PO Q12H PRN PRN Reason: Constipation Nicotine (Habitrol) 7 mg TRDERM DAILY [facility] Last Admin: 07/01/16 09:02 Dose: 7 mg Nicotine (Nicotrol) 10 mg INH Q1H PRN PRN Reason: Other Ondansetron HCl (Zofran) 4 mg IV Q4H PRN PRN Reason: Nausea/Vomiting Diflprednate Ophth ( Durezol) 0.05%Pom* * 0 each EYELF BID@0800,1500 [facility] Last Admin: 07/02/16 07:39 Dose: 1 each Polyethylene Glycol (Miralax) 17 gm PO DAILY PRN PRN Reason: Constipation Ranitidine HCl (Zantac) 150 mg PO DAILY [facility] Last Admin: 07/01/16 09:00 Dose: 150 mg Sertraline HCl (Zoloft) 150 mg PO DAILY [facility] Last Admin: 07/01/16 09:01 Dose: 150 mg Sodium Chloride (Saline Flush) 10 ml FLUSH ASDIRECTED PRN PRN Reason: Keep Vein Open Discontinued Medications Acetaminophen (Tylenol Extra Strength) 1,000 mg PO ONETIME ONE Stop: 06/30/16 13:58 Last Admin: 06/30/16 14:34 Dose: 1,000 mg Acetaminophen (Tylenol) 650 mg PO NOW ONE Stop: 06/30/16 14:31 Last Admin: 06/30/16 21:54 Dose: Not Given Diazepam (Valium) 2 mg PO ONETIME ONE Stop: 06/30/16 15:01 Last Admin: 06/30/16 15:08 Dose: 2 mg Diazepam (Valium) 2 mg PO Q4H [facility] Last Admin: 07/01/16 12:00 Dose: 2 mg Sodium Chloride (Normal Saline) 500 mls @ 1,000 mls/hr IV ASDIRECTED [facility] Last Admin: 06/30/16 10:41 Dose: 1,000 mls/hr Sodium Chloride (Normal Saline) 1,000 mls @ 125 mls/hr IV ASDIRECTED [facility] Last Admin: 06/30/16 23:39 Dose: 125 mls/hr Warfarin Sodium (Coumadin) 7.5 mg PO ONETIME ONE Stop: 07/01/16 13:31 Last Admin: 07/01/16 14:10 Dose: 7.5 mg *Q Meaningful Use (DIS) - VTE *Q VTE Criteria *Q: VTE Pharmacological Contraindications *Q: High INR Value - Stroke *Q Stroke Criteria *Q: - AMI *Q AMI Criteria *Q:
[2016-07-02] MEDS: Aspirin 81 MG Tab.EC PO SCH (11:50)
[2016-07-02] MEDS: Sertraline 50 MG Tab PO SCH (11:52)
[2016-07-02] MEDS: Nicotine 7 MG/24 Hr Patch TRDERM SCH (11:56)
== END 2016-07-02 13:00 | disposition home or self-care (01) | DRG 605 ==
LOC: JP.ED 09:20 → JP.MS 14:32
PROVIDERS: ADMIT Hospitalist; ATTEND Hospitalist
DX: S70.11XA Contusion of right thigh, initial encounter (principal); I95.1 Orthostatic hypotension; Y93.89 Activity, other specified; D64.9 Anemia, unspecified; E86.9 Volume depletion, unspecified; W06.XXXA Fall from bed, initial encounter; Y92.003 Bedroom of unspecified non-institutional (private) residence as the place of occurrence of the external cause; Z79.01 Long term (current) use of anticoagulants; M25.561 Pain in right knee; F17.210 Nicotine dependence, cigarettes, uncomplicated; F41.0 Panic disorder [episodic paroxysmal anxiety]; F41.9 Anxiety disorder, unspecified; H40.9 Unspecified glaucoma; Z96.641 Presence of right artificial hip joint; H54.41 Blindness, right eye, normal vision left eye; Z79.82 Long term (current) use of aspirin; R53.1 Weakness; Z88.8 Allergy status to other drugs, medicaments and biological substances; R42 Dizziness and giddiness; M79.651 Pain in right thigh
CPT/HCPCS: 36415; 80048; 85025; 96360; 96361; 99284; J7040; 73552-26-LT; 73552-RT; 73562-26-RT; 73562-RT; 81001; 85018; 85610; 97162-GP; 97530-GP; A9270-GY

== ENCOUNTER 2016-10-23 07:33 | Emergency (ER) | payer MEDICARE, BC ==
[2016-10-23 07:43] VITALS: BP 149/83
--- NOTE | 2016-10-23 08:08 | EDM.PDOC ---
[id number]: SOB/FEELS LIKE PASSING OUT Time Seen by Provider: 10/23/16 07:45 Source of Information: Reports: Patient, Family History Limitations: Reports: No Limitations - History of Present Illness INITIAL COMMENTS - FREE TEXT/NARRATIVE: 75-year-old male was drinking a fair amount of alcohol last night, had a large meal and woke at 2 AM feeling nauseous. He had several emesis, felt lightheaded and went to bed. He woke up this morning and again had some emesis and felt lightheaded but also felt short of breath and anxious. He has the symptoms recurring chronically and has diazepam for when necessary use but for some reason this morning he felt somewhat different and wanted to be checked out. He did not take any of his diazepam. On arrival his vitals were stable that he was still anxious. EKG showed normal sinus rhythm without ST changes. His nausea has improved. Severity: Moderate Associated Symptoms: Reports: Diaphoresis, Nausea/Vomiting, Shortness of Breath. Denies: Chest Pain, Cough, Fever/Chills, Headaches - Related Data Allergies Allergy/AdvReac Type Severity Reaction Status Date / Time lorazepam [From Ativan] AdvReac Severe Change Verified 06/30/16 09:33 Mental Status Home Meds: Home Meds Aspirin [Aspirin EC] 81 mg PO DAILY 02/24/13 [History] Folic Acid 1 mg PO DAILY 02/24/13 [History] Metoprolol Tartrate [Lopressor] 25 mg PO DAILY 02/24/13 [History] Multivit with Calcium,Iron,Min [Essential Daily] 1 each PO DAILY 02/24/13 [ History] Ranitidine [Zantac] 150 mg PO DAILY 02/24/13 [History] Sertraline HCl 150 mg PO DAILY 02/24/13 [History] Thiamine [Vitamin B-1] 100 mg PO DAILY 02/24/13 [History] Warfarin Sodium 5 mg PO ASDIRECTED 02/24/13 [History] Warfarin Sodium 7.5 mg PO ASDIRECTED 02/24/13 [History] amLODIPine Besylate [Amlodipine Besylate] 10 mg PO DAILY 02/24/13 [History] clonazePAM [Clonazepam] 0.5 mg PO TID PRN 02/24/13 [History] Brimonidine Tartrate [Brimonidine Tartrate 0.2% Oph Soln] 1 drop EYEBOTH BID 08/28/14 [History] Brimonidine/Timolol [Combigan 0.2%/0.5% Ophth Soln] 1 drp EYEBOTH BID 06/30/16 [ History] Acetaminophen [Tylenol] 650 mg PO Q4H tablet 07/02/16 [Rx] Nicotine [Nicotine Patch] 1 patch TD DAILY #30 patch 07/02/16 [Rx] Past Medical History HEENT History: Reports: Glaucoma 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- Cardiovascular History: Reports: Other (See Below) Other Cardiovascular History: aortic dissection Gastrointestinal History: Reports: Other (See Below) Other Gastrointestinal History: "Upset stomach easily" Musculoskeletal History: Reports: Arthritis, Fracture Psychiatric History: Reports: Anxiety, Panic Attack Hematologic History: Reports: Blood Transfusion(s) Dermatologic History: Reports: Psoriasis - Infectious Disease History Infectious Disease History: Reports: Chicken Pox - Past Surgical History HEENT Surgical History: Reports: Eye Surgery Cardiovascular Surgical History: Reports: Valve Replacement, Other (See Below) Musculoskeletal Surgical History: Reports: Hip Replacement Social & Family History - Family History Family Medical History: Noncontributory - Tobacco Use Smoking Status *Q: Light Tobacco Smoker Years of Tobacco use: 40 Packs/Tins Daily: 0.5 Used Tobacco, but Quit: No Month Tobacco Last Used: June Second Hand Smoke Exposure: No - Caffeine Use Caffeine Use: Reports: Soda Other Caffeine Use: 2-3 cups a day - Alcohol Use Days Per Week of Alcohol Use: 5 Number of Drinks Per Day: 2 Total Drinks Per Week: 10 - Recreational Drug Use Recreational Drug Use: No ED ROS GENERAL - Review of Systems Review Of Systems: See Below Constitutional: Reports: Malaise. Denies: Fever, Chills HEENT: Reports: No Symptoms Respiratory: Reports: Shortness of Breath. Denies: Cough, Sputum Cardiovascular: Reports: Palpitations. Denies: Chest Pain, Syncope GI/Abdominal: Reports: Nausea, Vomiting. Denies: Abdominal Pain : Reports: No Symptoms Skin: Reports: Pallor, Diaphoresis Neurological: Reports: Dizziness Psychiatric: Reports: Anxiety ED EXAM, GENERAL - Physical Exam Exam: See Below Exam Limited By: No Limitations General Appearance: Alert, No Apparent Distress, Anxious (Anxiety is improving, he is calming down) Respiratory/Chest: No Respiratory Distress, Lungs Clear Cardiovascular: Regular Rate, Rhythm. No: Extra Beats GI/Abdominal: Soft, Non-Tender Extremities: Normal Inspection. No: Pedal Edema Neurological: Alert, Oriented, No Motor/Sensory Deficits Psychiatric: Anxious Skin Exam: Warm, Dry EKG INTERPRETATION Rhythm: NSR Course - Vital Signs Last Recorded V/S: Last Vital Signs Temp 97.7 F 10/23/16 07:43 Pulse 58 L 10/23/16 07:43 Resp 20 10/23/16 07:43 BP 149/83 H 10/23/16 07:43 Pulse Ox 97 10/23/16 07:43 - Orders/Labs/Meds Labs: Laboratory Tests 10/23/16 10/23/16 10/23/16 Range/Units 08:10 08:10 08:10 WBC 4.7 (4.5-11.0) K/uL RBC 4.15 L (4.30-5.90) M/uL Hgb 13.3 D (12.0-15.0) g/dL Hct 39.1 L (40.0-54.0) % MCV 94 (80-98) fL MCH 32 H (27-31) pg MCHC 34 (32-36) % Plt Count 260 (150-400) K/uL Neut % (Auto) 54 (36-66) % Lymph % (Auto) 21 L (24-44) % [place] % (Auto) 17 H (2-6) % Eos % (Auto) 5 H (2-4) % Baso % (Auto) 2 H (0-1) % Sodium 134 L (140-148) mmol/L Potassium 4.2 (3.6-5.2) mmol/L Chloride 101 (100-108) mmol/L Carbon Dioxide 27 (21-32) mmol/L Anion Gap 10.2 (5.0-14.0) mmol/L BUN 20 H D (7-18) mg/dL Creatinine 1.2 (0.8-1.3) mg/dL Est Cr Clr Drug Dosing 60.89 mL/min Estimated GFR (MDRD) 59 L (>60) Glucose 96 (74-106) mg/dL Calcium 8.6 (8.5-10.1) mg/dL Troponin I < 0.017 (0.000-0.056) ng/mL Lipase 274 (73-393) U/L Ethyl Alcohol < 3 mg/dL Meds: Medications Discontinued Medications Generic Name Dose Route Start Last Admin Trade Name Rachel PRN Reason Stop Dose Admin Sodium Chloride 1,000 mls @ 1,000 mls/hr 10/23/16 08:15 10/23/16 08:13 Normal Saline IV 1,000 mls/hr ASDIRECTED [facility] Administration - Re-Assessments/Exams Free Text/Narrative Re-Assessment/Exam: 10/23/16 08:08 An EKG was done which showed some chronic changes such as right bundle branch block but no acute findings, stable ST segment and normal sinus rhythm. IV was started to bolus with 1000 mL of normal saline, CBC troponin and BMP were obtained. The patient was allowed to take one of his personal 2 mg diazepam tablets. 10/23/16 08:38 Patient felt much better within a half hour, all his labs were normal or reassuring, troponin was 0. Departure - Departure Time of Disposition: 08:58 Disposition: Home, Self-Care 01 Condition: Good Clinical Impression: Nausea and vomiting in adult, Anxiety about health Instructions: Panic Attacks, [id number], Nausea and Vomiting, Adult Referrals: Christopher Martinez PA [Primary Care Provider] - Forms: ED Department Discharge Care Plan Goals: Continue your current medications and avoid dehydration. Return any time if worsening or concerns.
[2016-10-23] MEDS ORDERED: Sodium Chloride 0.9% 1,000 ML IV SCH (08:15)
== END 2016-10-23 08:58 | disposition home or self-care (01) ==
LOC: JP.ED 07:33
DX: R11.2 Nausea with vomiting, unspecified (principal); F41.9 Anxiety disorder, unspecified; F17.210 Nicotine dependence, cigarettes, uncomplicated; Z98.890 Other specified postprocedural states; Z95.4 Presence of other heart-valve replacement; Z96.659 Presence of unspecified artificial knee joint; Z79.01 Long term (current) use of anticoagulants; Z79.899 Other long term (current) drug therapy; Z79.82 Long term (current) use of aspirin; Z88.8 Allergy status to other drugs, medicaments and biological substances
CPT/HCPCS: 36415; 80048; 83690; 84484; 85025; 96360; 99285; G0480; J7040; 93005; 93010; 99284

== ENCOUNTER 2016-11-20 02:41 | Emergency (ER) | payer MEDICARE, BC ==
[2016-11-20] MEDS ORDERED: HYDROmorphone 1 MG/ML Syringe IV ONE ×2 (02:58→03:30)
[2016-11-20] MEDS ORDERED: Ondansetron 4 MG/2 ML SDV IVPUSH ONE (02:58)
[2016-11-20] MEDS ORDERED: Ondansetron 4 MG/2 ML SDV ONE (03:06)
[2016-11-20] MEDS ORDERED: HYDROmorphone 1 MG/ML Syringe ONE ×2 (03:06→03:37)
[2016-11-20 08:42] VITALS: BP 137/75
== END 2016-11-20 04:30 | disposition home or self-care (01) ==
LOC: JP.ED 02:41
DX: H57.12 Ocular pain, left eye (principal)
CPT/HCPCS: 96374; 96376; 99283; J1170; J2405

== ENCOUNTER 2019-08-01 05:57 | Emergency (ER) | payer MEDICARE, BC ==
[2019-08-01 06:20] VITALS: PULSE 79
[2019-08-01] MEDS ORDERED: HYDROmorphone 0.5 MG/0.5 ML Syringe IVPUSH ONE (06:32)
[2019-08-01] MEDS ORDERED: Ondansetron 4 MG/2 ML SDV IVPUSH ONE (06:32)
--- NOTE | 2019-08-01 06:38 | EDM.PDOC ---
<Jerel Mukherjee - Last Filed: 08/01/19 06:42> ED HPI GENERAL MEDICAL PROBLEM - General Chief Complaint: Back Pain or Injury Stated Complaint: FELL Time Seen by Provider: 08/01/19 06:30 Source of Information: Reports: Patient History Limitations: Reports: No Limitations - History of Present Illness INITIAL COMMENTS - FREE TEXT/NARRATIVE: 78-year-old male who last night got tangled in his dog leash and stumbled hitting his left flank area hard on the corner of a cupboard island in the kitchen. He has had intense pain since that time over the left flank area, significant pleuritic pain with breathing and pain with movement. He is on Coumadin. No urinary symptoms, no cough or hemoptysis. He has not noticed hematuria. He is mainly here because of the intense localized pain and nausea. Onset: Sudden Duration: Hour(s): (10 hours ago) Location: Reports: Chest, Back Quality: Reports: Sharp, Stabbing Improves with: Reports: None Worsens with: Reports: Breathing, Movement Associated Symptoms: Reports: Chest Pain (Left lateral chest discomfort with movement and breathing), Nausea/Vomiting. Denies: Cough Treatments [employer]: Reports: Other (see below) Other Treatments [employer]: unknown Back Pain Score (Numeric/FACES): 4 - Related Data Allergies Allergy/AdvReac Type Severity Reaction Status Date / Time lorazepam [From Ativan] AdvReac Severe Change Verified 08/01/19 06:13 Mental Status Home Meds: Home Meds Aspirin [Aspirin EC] 81 mg PO DAILY 02/24/13 [History] Folic Acid 1 mg PO DAILY 02/24/13 [History] Metoprolol Tartrate [Lopressor] 25 mg PO BID 02/24/13 [History] Multivit with Calcium,Iron,Min [Essential Daily] 1 each PO DAILY 02/24/13 [ History] Ranitidine [Zantac] 150 mg PO DAILY 02/24/13 [History] Sertraline HCl 150 mg PO DAILY 02/24/13 [History] Thiamine [Vitamin B-1] 100 mg PO DAILY 02/24/13 [History] Warfarin Sodium 5 mg PO ASDIRECTED 02/24/13 [History] Warfarin Sodium 7.5 mg PO ASDIRECTED 02/24/13 [History] amLODIPine Besylate [Amlodipine Besylate] 10 mg PO DAILY 02/24/13 [History] clonazePAM [Clonazepam] 0.5 mg PO TID PRN 02/24/13 [History] Brimonidine/Timolol [Combigan 0.2%/0.5% Ophth Soln] 1 drp EYEBOTH BID 06/30/16 [ History] Acetaminophen [Tylenol] 650 mg PO Q4H tablet 07/02/16 [Rx] Nicotine [Nicotine Patch] 1 patch TD DAILY #30 patch 07/02/16 [Rx] Hydrocodone/Acetaminophen [Hydrocodon-Acetaminophen 5-325] 1 each PO TID PRN # 20 tablet 08/01/19 [Rx] Past Medical History HEENT History: Reports: Glaucoma 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- Cardiovascular History: Reports: Other (See Below) Other Cardiovascular History: aortic dissection Respiratory History: Reports: None Gastrointestinal History: Reports: Other (See Below) Other Gastrointestinal History: "Upset stomach easily" Genitourinary History: Reports: BPH Musculoskeletal History: Reports: Arthritis, Fracture Neurological History: Reports: Migraines Psychiatric History: Reports: Anxiety, Panic Attack Endocrine/Metabolic History: Reports: None Hematologic History: Reports: Blood Transfusion(s) Immunologic History: Reports: None Oncologic (Cancer) History: Reports: None Dermatologic History: Reports: Psoriasis - Infectious Disease History Infectious Disease History: Reports: Chicken Pox - Past Surgical History Head Surgeries/Procedures: Reports: None HEENT Surgical History: Reports: Cataract Surgery, Eye Surgery Cardiovascular Surgical History: Reports: Valve Replacement Respiratory Surgical History: Reports: None GI Surgical History: Reports: None Endocrine Surgical History: Reports: None Neurological Surgical History: Reports: Spinal Fusion Musculoskeletal Surgical History: Reports: Hip Replacement Oncologic Surgical History: Reports: None Dermatological Surgical History: Reports: None Social & Family History - Family History Family Medical History: Noncontributory - Tobacco Use Smoking Status *Q: Never Smoker Second Hand Smoke Exposure: No - Caffeine Use Caffeine Use: Reports: Coffee Other Caffeine Use: 2-3 cups a day - Recreational Drug Use Recreational Drug Use: No ED ROS GENERAL - Review of Systems Review Of Systems: See Below Constitutional: Denies: Fever, Chills Respiratory: Reports: Pleuritic Chest Pain Cardiovascular: Reports: Chest Pain. Denies: Palpitations GI/Abdominal: Reports: Nausea, Vomiting. Denies: Abdominal Pain, Constipation, Diarrhea : Reports: No Symptoms Skin: Reports: Bruising (A small amount of bruising is developed over the left flank) Neurological: Denies: Dizziness, Headache Psychiatric: Reports: No Symptoms ED EXAM, GENERAL - Physical Exam Exam: See Below Exam Limited By: No Limitations General Appearance: Alert, Moderate Distress (Severe pain with any movement) Head: Atraumatic Neck: Supple, Non-Tender Respiratory/Chest: No Respiratory Distress, Other (Some decreased breath sounds in the left base could be from splinting due to pain. On palpation the left posterior lower ribs have crepitus) Cardiovascular: Regular Rate, Rhythm, Other (Prominent artificial valve click) GI/Abdominal: Soft, Tender (No rebound or guarding but he does have tenderness to palpation in the left upper quadrant). No: Guarding, Rebound Extremities: Normal Inspection. No: Pedal Edema Neurological: Alert, Oriented Psychiatric: Anxious Skin Exam: Warm, Dry, Other (There is some bruising developing in the left flank ) Course - Vital Signs Last Recorded V/S: Last Vital Signs Temp 96.8 F L 08/01/19 06:19 Pulse 79 08/01/19 07:49 Resp 14 08/01/19 07:49 BP 123/66 08/01/19 07:49 Pulse Ox 94 L 08/01/19 07:49 - Orders/Labs/Meds Labs: Laboratory Tests 08/01/19 08/01/19 08/01/19 Range/Units 06:48 06:48 06:48 WBC 7.3 (4.5-11.0) K/uL RBC 4.16 L (4.30-5.90) M/uL Hgb 12.3 (12.0-15.0) g/dL Hct 38.6 L (40.0-54.0) % MCV 93 (80-98) fL MCH 30 (27-31) pg MCHC 32 (32-36) % Plt Count 318 (150-400) K/uL Neut % (Auto) 73 H (36-66) % Lymph % (Auto) 13 L (24-44) % [place] % (Auto) 12 H (2-6) % Eos % (Auto) 1 L (2-4) % Baso % (Auto) 1 (0-1) % PT 36.1 H (9.5-12.0) sec INR 3.59 H D (0.80-1.20) Sodium 136 L (140-148) mmol/L Potassium 4.6 (3.6-5.2) mmol/L Chloride 99 L (100-108) mmol/L Carbon Dioxide 27 (21-32) mmol/L Anion Gap 14.6 H (5.0-14.0) mmol/L BUN 20 H (7-18) mg/dL Creatinine 1.7 H (0.8-1.3) mg/dL Est Cr Clr Drug Dosing 40.98 mL/min Estimated GFR (MDRD) 39 L (>60) Glucose 110 H (74-106) mg/dL Calcium 9.8 (8.5-10.1) mg/dL Total Bilirubin 0.5 (0.2-1.0) mg/dL AST 33 (15-37) U/L ALT 30 (12-78) U/L Alkaline Phosphatase 56 (46-116) U/L Total Protein 7.3 (6.4-8.2) g/dL Albumin 3.7 (3.4-5.0) g/dL Globulin 3.6 H (2.3-3.5) g/dL Albumin/Globulin Ratio 1.0 L (1.2-2.2) Meds: Medications Discontinued Medications Generic Name Dose Route Start Last Admin Trade Name Toreyq PRN Reason Stop Dose Admin Fentanyl 100 mcg 08/01/19 07:31 08/01/19 07:35 Sublimaze IVPUSH 08/01/19 07:32 100 mcg ONETIME ONE Administration Hydromorphone HCl 0.5 mg 08/01/19 06:32 08/01/19 06:50 Dilaudid IVPUSH 08/01/19 06:33 0.5 mg ONETIME ONE Administration Ondansetron HCl 4 mg 08/01/19 06:32 08/01/19 06:44 Zofran IVPUSH 08/01/19 06:33 4 mg ONETIME ONE Administration - Re-Assessments/Exams Free Text/Narrative Re-Assessment/Exam: 08/01/19 06:43 An IV was started and the patient was given 0.5 mg of IV Dilaudid and 4 mg of IV Zofran. CBC CMP and INR were obtained with intention of a CT scan of the chest abdomen and pelvis with IV contrast. Dr. Officer assumed care. Departure - Departure Disposition: Home, Self-Care 01 Clinical Impression: Multiple fractures of ribs, left side, initial encounter for closed fracture - Discharge Information Prescriptions: Hydrocodone/Acetaminophen [Hydrocodon-Acetaminophen 5-325] 1 each PO TID PRN # 20 tablet PRN Reason: Pain Instructions: Rib Fracture Referrals: Jonel Linn, [employer] [Primary Care Provider] - Forms: ED Department Discharge Additional Instructions: Use ibuprofen for baseline pain control, use hydrocodone for breakthrough pain, remember to take deep breaths as much as possible, please followup with your primary care provider in 3-5 days if not better, please call return to the emergency department with worsening of symptoms. Your medications have been faxed to [facility] Sepsis Event Note - Evaluation Sepsis Screening Result: No Definite Risk - Focused Exam Vital Signs: Vital Signs Temp Pulse Resp BP Pulse Ox 08/01/19 07:49 79 14 123/66 94 L 08/01/19 06:19 96.8 F L 79 14 154/96 H 95 Date Exam was Performed: 08/01/19 Time Exam was Performed: 06:42 <JoshrMax - Last Filed: 08/01/19 08:23> Departure - Departure Time of Disposition: 08:22 Condition: Fair Sepsis Event Note - Focused Exam Date Exam was Performed: 08/01/19 Time Exam was Performed: 08:19 - Assessment/Plan Plan: Assessment Acuity = acute Site and laterality = multiple rib fractures left side Etiology = secondary trauma Manifestations = pain Location of injury = Home Lab values = CBC unremarkable INR supratherapeutic 3.59 sodium low at 136 consistent hyponatremia creatinine elevated 1.7 consistent with chronic renal failure stage G3 B CT scan describes a rib fracture as above Plan We able to get his pain under control combination Dilaudid and fentanyl, prescription was written for hydrocodone 5/325 1 tab p.o. 3 times daily PRN total #20 and follow-up with his primary care 3 to 5 days if not better medications faxed to [facility] This note was dictated using [employer] recognition software please call with any questions on syntax or grammar.
[2019-08-01] MEDS ORDERED: fentaNYL 100 MCG/2 ML SDV IVPUSH ONE (07:31)
[2019-08-01 07:50] VITALS: BP 123/66
--- NOTE | 2019-08-01 07:57 | CRLCT ---
HISTORY: Trauma. Right upper quadrant pain. TECHNIQUE: CT abdomen and pelvis without contrast. COMPARISON: CT angiogram chest, abdomen, and pelvis 01/20/2018. FINDINGS: Abdomen: Unenhanced liver, pancreas, spleen, and adrenal glands are unremarkable. No urinary tract calculi or hydronephrosis. 3.2 cm right renal cyst. No dilated bowel. Colonic diverticulosis. No free fluid. No pneumoperitoneum. No lymphadenopathy. Chronic aortic dissection. Atherosclerotic calcifications. Abdominal aorta measures up to 3 cm in diameter, unchanged. Pelvis: Portions of the pelvis are obscured by artifact from bilateral hip arthroplasty hardware. No lymphadenopathy. Musculoskeletal: Bilateral total hip arthroplasties. Degenerative changes of the spine and sacroiliac joints. Lower chest: Sternal wires. Aortic valve prosthesis. Coronary artery calcifications. Mild atelectasis or scarring in both lung bases. IMPRESSION: 1. No acute abnormality in the abdomen or pelvis. 2. Colonic diverticulosis. 3. Chronic aortic dissection. Please note that all CT scans at this facility use dose modulation, iterative reconstruction, and/or weight-based dosing when appropriate to reduce radiation dose to as low as reasonably achievable. Dictated by: Shiv Walters MD @ 08/01/2019 07:56:05 (Electronically Signed)
== END 2019-08-01 08:57 | disposition home or self-care (01) ==
LOC: JP.ED 05:57
DX: S22.42XA Multiple fractures of ribs, left side, initial encounter for closed fracture (principal); M19.90 Unspecified osteoarthritis, unspecified site; F41.9 Anxiety disorder, unspecified; Z79.82 Long term (current) use of aspirin; Z79.01 Long term (current) use of anticoagulants; Z79.899 Other long term (current) drug therapy; Z88.8 Allergy status to other drugs, medicaments and biological substances; W22.8XXA Striking against or struck by other objects, initial encounter
CPT/HCPCS: 36415; 74176; 80053; 85025; 85610; 96374; 96375; 99284; J1170; J2405; J3010

== ENCOUNTER 2019-11-24 13:01 | Emergency (ER) | payer MEDICARE, BC ==
--- NOTE | 2019-11-24 14:49 | EDM.PDOC ---
ED HPI GENERAL MEDICAL PROBLEM - General Chief Complaint: ENT Problem Stated Complaint: BLEEDING FROM REMOVAL (HAD 3 REMOVED) Time Seen by Provider: 11/24/19 14:49 Source of Information: Reports: Patient History Limitations: Reports: No Limitations - History of Present Illness INITIAL COMMENTS - FREE TEXT/NARRATIVE: 79 years old male patient presented to the ER with a chief complaint of bleeding gum. Patient is on Coumadin. Had right upper 3 tooth extraction this morning. As gum bleeding since then. Denies any dizziness. Denies any chest pain or shortness breath. Denies any cough or fever. Denies any abdominal pain diarrhea or constipation. Denies any urinary symptom. Upper Oral/Mouth Pain Score (Numeric/FACES): 5 - Related Data Allergies Allergy/AdvReac Type Severity Reaction Status Date / Time acetaminophen [From Percocet] Allergy Change Verified 11/24/19 14:51 Mental Status hydrocodone Allergy Change Verified 11/24/19 14:51 Mental Status oxycodone [From Percocet] Allergy Change Verified 11/24/19 14:51 Mental Status lorazepam [From Ativan] AdvReac Severe Change Verified 08/01/19 06:13 Mental Status Home Meds: Home Meds Aspirin [Aspirin EC] 81 mg PO DAILY 02/24/13 [History] Folic Acid 1 mg PO DAILY 02/24/13 [History] Metoprolol Tartrate [Lopressor] 25 mg PO BID 02/24/13 [History] Multivit with Calcium,Iron,Min [Essential Daily] 1 each PO DAILY 02/24/13 [History] Ranitidine [Zantac] 150 mg PO DAILY 02/24/13 [History] Sertraline HCl 150 mg PO DAILY 02/24/13 [History] Thiamine [Vitamin B-1] 100 mg PO DAILY 02/24/13 [History] Warfarin Sodium 5 mg PO ASDIRECTED 02/24/13 [History] Warfarin Sodium 7.5 mg PO ASDIRECTED 02/24/13 [History] amLODIPine Besylate [Amlodipine Besylate] 10 mg PO DAILY 02/24/13 [History] clonazePAM [Clonazepam] 0.5 mg PO TID PRN 02/24/13 [History] Brimonidine/Timolol [Combigan 0.2%/0.5% Ophth Soln] 1 drp EYEBOTH BID 06/30/16 [History] Acetaminophen [Tylenol] 650 mg PO Q4H tablet 07/02/16 [Rx] Past Medical History HEENT History: Reports: Glaucoma 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- Cardiovascular History: Reports: Other (See Below) Other Cardiovascular History: aortic dissection Respiratory History: Reports: None Gastrointestinal History: Reports: Other (See Below) Other Gastrointestinal History: "Upset stomach easily" Genitourinary History: Reports: BPH Musculoskeletal History: Reports: Arthritis, Fracture Neurological History: Reports: Migraines Psychiatric History: Reports: Anxiety, Panic Attack Endocrine/Metabolic History: Reports: None Hematologic History: Reports: Blood Transfusion(s) Immunologic History: Reports: None Oncologic (Cancer) History: Reports: None Dermatologic History: Reports: Psoriasis - Infectious Disease History Infectious Disease History: Reports: Chicken Pox - Past Surgical History Head Surgeries/Procedures: Reports: None HEENT Surgical History: Reports: Cataract Surgery, Eye Surgery Cardiovascular Surgical History: Reports: Valve Replacement Respiratory Surgical History: Reports: None GI Surgical History: Reports: None Endocrine Surgical History: Reports: None Neurological Surgical History: Reports: Spinal Fusion Musculoskeletal Surgical History: Reports: Hip Replacement Oncologic Surgical History: Reports: None Dermatological Surgical History: Reports: None Social & Family History - Family History Family Medical History: Noncontributory - Caffeine Use Caffeine Use: Reports: Coffee Other Caffeine Use: 2-3 cups a day ED ROS ENT - Review of Systems Review Of Systems: Comprehensive ROS is negative, except as noted in HPI. ED EXAM, ENT - Physical Exam Exam: See Below Exam Limited By: No Limitations General Appearance: Alert, WD/WN, No Apparent Distress Nose: Normal Inspection, Normal Mucousa, No Blood Mouth/Throat: Other (Bleeding from the right upper gum. Controlled with pressure gauze.) Course - Vital Signs Last Recorded V/S: Last Vital Signs Temp 36.3 C 11/24/19 14:48 Pulse 85 11/24/19 14:48 Resp 17 11/24/19 14:48 BP 136/74 11/24/19 14:48 Pulse Ox 96 11/24/19 14:48 - Orders/Labs/Meds Labs: Laboratory Tests 11/24/19 11/24/19 Range/Units 15:03 15:03 WBC 6.7 (4.5-11.0) K/uL RBC 3.60 L (4.30-5.90) M/uL Hgb 9.1 L D (12.0-15.0) g/dL Hct 31.5 L (40.0-54.0) % MCV 88 (80-98) fL MCH 25 L (27-31) pg MCHC 29 L (32-36) % Plt Count 309 (150-400) K/uL Neut % (Auto) 66 (36-66) % Lymph % (Auto) 12 L (24-44) % [place] % (Auto) 12 H (2-6) % Eos % (Auto) 10 H (2-4) % Baso % (Auto) 1 (0-1) % PT 30.7 H (9.5-12.0) sec INR 2.88 H (0.80-1.20) Meds: Medications Discontinued Medications Generic Name Dose Route Start Last Admin Trade Name Freq PRN Reason Stop Dose Admin Acetaminophen 1,000 mg 11/24/19 17:18 11/24/19 17:26 Tylenol Extra Strength PO 11/24/19 17:19 1,000 mg ONETIME ONE Administration - Radiology Interpretation Free Text/Narrative:: Patient was seen and examined shortly after arrival. Stable. Advised to bite on a pressure gauze. Monitored in the ER for several hours. Lab reviewed. INR 2.8. Hemoglobin is 9. Bleeding stopped. Patient's feeling well. Hemodynamically stable. Requesting to be discharged home. Advised to Rest and stay well-hydrated Follow-up with primary doctor tomorrow and recheck INR and hemoglobin Come back if it starts bleeding again Patient agrees with the plan. Stable for discharge. Departure - Departure Time of Disposition: 17:58 Disposition: Home, Self-Care 01 Condition: Good, Fair Clinical Impression: Gums, bleeding - Discharge Information *PRESCRIPTION DRUG MONITORING PROGRAM REVIEWED*: Not Applicable *COPY OF PRESCRIPTION DRUG MONITORING REPORT IN PATIENT RANDAL: Not Applicable Referrals: Jonel Linn NP [Primary Care Provider] - Forms: ED Department Discharge Additional Instructions: Rest and stay well-hydrated Follow-up with primary doctor tomorrow and recheck INR and hemoglobin Come back if it starts bleeding again Sepsis Event Note (ED) - Focused Exam Vital Signs: Vital Signs Temp Pulse Resp BP Pulse Ox 11/24/19 14:48 36.3 C 85 17 136/74 96 - Assessment/Plan Plan: Rest and stay well-hydrated Follow-up with primary doctor tomorrow and recheck INR and hemoglobin Come back if it starts bleeding again
[2019-11-24 14:50] VITALS: BP 136/74; PULSE 85
[2019-11-24] MEDS ORDERED: Acetaminophen 500 MG Tab PO ONE (17:18)
== END 2019-11-24 18:26 | disposition home or self-care (01) ==
LOC: JP.ED 13:01
DX: K06.8 Other specified disorders of gingiva and edentulous alveolar ridge (principal); M19.90 Unspecified osteoarthritis, unspecified site; F41.9 Anxiety disorder, unspecified; Z79.82 Long term (current) use of aspirin; Z79.899 Other long term (current) drug therapy; Z88.5 Allergy status to narcotic agent; Z88.6 Allergy status to analgesic agent; Z88.8 Allergy status to other drugs, medicaments and biological substances
CPT/HCPCS: 36415; 85025; 85610; 99283; A9270

== ENCOUNTER 2021-07-22 00:29 | Inpatient (IN) | payer MEDICARE, BC ==
[2021-07-22] MEDS ORDERED: Iopamidol 612 MG/ML 100 ML Bottle IV STA (01:16)
[2021-07-22] MEDS ORDERED: Sodium Chloride 0.9% 50 ML IV STA (01:16)
[2021-07-22] MEDS ORDERED: HYDROmorphone 0.5 MG/0.5 ML Syringe IVPUSH ONE (02:11)
[2021-07-22] MEDS ORDERED: Sodium Chloride 0.9% 10 ML Syringe FLUSH PRN (02:11)
[2021-07-22] MEDS ORDERED: Sodium Chloride 0.9% 1,000 ML IV SCH (02:15)
[2021-07-22] MEDS ORDERED: Enoxaparin 80 MG/0.8 ML Syringe SUBCUT ONE ×2 (03:29→19:00)
[2021-07-22] MEDS ORDERED: Phytonadione 10 MG in Sodium Chloride 0.9% 50 ML IV ONE (03:29)
[2021-07-22] MEDS ORDERED: Tamsulosin 0.4 MG Cap.ER PO ONE (04:46)
[2021-07-22 05:16] LABS: CORONAVIRUS COVID-19 NAA NEGATIVE (NEGATIVE)
[2021-07-22] MEDS: HYDROmorphone 1 MG/ML Syringe IVPUSH PRN ×6 (05:59→21:26)
[2021-07-22] MEDS: amLODIPine 5 MG Tab PO SCH (13:20)
[2021-07-22] MEDS: Memantine 10 MG Tab PO SCH (13:21)
[2021-07-22] MEDS: Venlafaxine 75 MG Cap.ER PO SCH (13:21)
[2021-07-22] MEDS ORDERED: Phytonadione 5 MG in Sodium Chloride 0.9% 50 ML IV ONE (17:30)
[2021-07-22] MEDS: Sodium Chloride 0.9% 1,000 ML IV SCH (19:25)
[2021-07-22] MEDS ORDERED: DEXAMETHASONE EYELF SCH (22:00)
[2021-07-23] MEDS: HYDROmorphone 1 MG/ML Syringe IVPUSH PRN ×7 (01:31→23:29)
[2021-07-23] MEDS: Furosemide 20 MG Tab PO SCH (08:23)
[2021-07-23] MEDS: Venlafaxine 75 MG Cap.ER PO SCH (08:23)
[2021-07-23] MEDS: Folic Acid 1 MG Tab PO SCH (08:23)
[2021-07-23] MEDS: Memantine 10 MG Tab PO SCH (08:24)
[2021-07-23] MEDS: Famotidine 20 MG Tab PO SCH (08:25)
[2021-07-23] MEDS: Cetirizine 10 MG Tab PO SCH (08:26)
[2021-07-23] MEDS: Nicotine 7 MG/24 Hr Patch TRDERM SCH (08:26)
[2021-07-23] MEDS: Potassium Chloride 10 MEQ Cap.ER PO SCH (08:26)
[2021-07-23] MEDS: amLODIPine 5 MG Tab PO SCH (08:27)
[2021-07-23] MEDS: BRIMONIDINE 0.2% EYERT SCH ×2 (08:31→20:45)
[2021-07-23] MEDS: OPTH EYERT SCH ×3 (08:31→20:45)
[2021-07-23] MEDS: Sodium Chloride 0.9% 1,000 ML IV SCH ×2 (08:35→19:29)
[2021-07-23] MEDS ORDERED: ASPIRIN 500 MG PO SCH (09:00)
[2021-07-23] MEDS ORDERED: CIMETIDINE 400 MG PO SCH (09:00)
[2021-07-23] MEDS: OPTH EYELF SCH ×3 (09:42→21:19)
[2021-07-23] MEDS: DEXAMETHASONE 0.1% EYELF SCH ×3 (09:42→21:19)
[2021-07-23] MEDS ORDERED: Bupivacaine 0.5% 30 ML SDV ONE (13:09)
[2021-07-23] MEDS ORDERED: fentaNYL 100 MCG/2 ML SDV ONE (13:16)
[2021-07-23] MEDS ORDERED: Propofol 200 MG/20 ML SDV ONE (13:16)
[2021-07-23] MEDS ORDERED: ceFAZolin 2 GM in Premix Bag 1 BAG IV ONE (15:45)
[2021-07-23] MEDS ORDERED: Warfarin 5 MG Tab PO SCH (16:45)
[2021-07-23] MEDS ORDERED: ceFAZolin 1 GM in Sodium Chloride 0.9% 50 ML IV SCH (16:45)
[2021-07-23] MEDS: Enoxaparin 80 MG/0.8 ML Syringe SUBCUT SCH (19:29)
[2021-07-23] MEDS: ATROPINE SULFATE OP SCH (20:44)
[2021-07-23] MEDS: LATANOPROST 0.005% EYERT SCH (20:45)
[2021-07-23] MEDS ORDERED: TIMOLOL EYERT SCH (21:00)
[2021-07-23] MEDS ORDERED: ATROPINE 1% EYELF SCH (21:00)
[2021-07-23] MEDS ORDERED: OPTH EYELF SCH (21:00)
[2021-07-23] MEDS ORDERED: Acetaminophen 325 MG Tab PO ONE (22:25)
[2021-07-23] MEDS ORDERED: ceFAZolin 1 GM Vial ONE (23:15)
[2021-07-23] MEDS ORDERED: Sodium Chloride 0.9% 50 ML ONE (23:15)
[2021-07-23] MEDS: ceFAZolin 1 GM in Premix Bag 1 BAG IV SCH (23:56)
[2021-07-24] MEDS: ceFAZolin 1 GM in Premix Bag 1 BAG IV SCH ×3 (00:27→16:10)
[2021-07-24] MEDS: HYDROmorphone 1 MG/ML Syringe IVPUSH PRN ×2 (03:05→15:48)
[2021-07-24] MEDS: DEXAMETHASONE 0.1% EYELF SCH ×4 (06:10→22:10)
[2021-07-24] MEDS: OPTH EYELF SCH ×4 (06:10→22:10)
[2021-07-24] MEDS: traMADol 50 MG Tab PO PRN ×4 (08:28→22:08)
[2021-07-24] MEDS: Enoxaparin 80 MG/0.8 ML Syringe SUBCUT SCH ×2 (08:32→19:25)
[2021-07-24] MEDS: Acetaminophen 325 MG Tab PO SCH ×3 (08:32→19:26)
[2021-07-24] MEDS: Tamsulosin 0.4 MG Cap.ER PO SCH (08:35)
[2021-07-24] MEDS: Potassium Chloride 10 MEQ Cap.ER PO SCH (08:35)
[2021-07-24] MEDS: Folic Acid 1 MG Tab PO SCH (08:35)
[2021-07-24] MEDS: amLODIPine 5 MG Tab PO SCH (08:36)
[2021-07-24] MEDS: Memantine 10 MG Tab PO SCH (08:36)
[2021-07-24] MEDS: Venlafaxine 75 MG Cap.ER PO SCH (08:36)
[2021-07-24] MEDS: Cetirizine 10 MG Tab PO SCH (08:37)
[2021-07-24] MEDS: Furosemide 20 MG Tab PO SCH (08:37)
[2021-07-24] MEDS: Famotidine 20 MG Tab PO SCH (08:37)
[2021-07-24] MEDS: Aspirin 81 MG Tab.EC PO SCH (08:38)
[2021-07-24] MEDS: Nicotine 7 MG/24 Hr Patch TRDERM SCH (08:39)
[2021-07-24] MEDS: OPTH EYERT SCH ×4 (08:46→20:55)
[2021-07-24] MEDS: BRIMONIDINE 0.2% EYERT SCH ×3 (08:46→20:55)
[2021-07-24] MEDS ORDERED: Venlafaxine 75 MG Cap.ER PO SCH (09:00)
[2021-07-24] MEDS ORDERED: amLODIPine 5 MG Tab PO SCH (09:00)
[2021-07-24] MEDS ORDERED: MEMANTINE 5 MG PO SCH (09:00)
[2021-07-24] MEDS: Warfarin 5 MG Tab PO SCH (13:50)
[2021-07-24] MEDS: Hypromellose 0.3% Ophth Soln 15 ML Bottle EYERT SCH ×2 (15:51→22:09)
[2021-07-24] MEDS: ATROPINE SULFATE OP SCH (20:50)
[2021-07-24] MEDS: LATANOPROST 0.005% EYERT SCH (20:51)
[2021-07-25] MEDS: HYDROmorphone 1 MG/ML Syringe IVPUSH PRN ×2 (01:09→09:52)
[2021-07-25] MEDS: Acetaminophen 325 MG Tab PO SCH ×4 (02:48→19:23)
[2021-07-25] MEDS: traMADol 50 MG Tab PO PRN ×5 (02:48→23:46)
[2021-07-25] MEDS: Hypromellose 0.3% Ophth Soln 15 ML Bottle EYERT SCH ×4 (04:39→23:48)
[2021-07-25] MEDS: OPTH EYELF SCH ×4 (05:52→23:47)
[2021-07-25] MEDS: DEXAMETHASONE 0.1% EYELF SCH ×4 (05:52→23:47)
[2021-07-25] MEDS: Enoxaparin 80 MG/0.8 ML Syringe SUBCUT SCH ×2 (08:54→19:23)
[2021-07-25] MEDS: OPTH EYERT SCH ×3 (08:54→20:12)
[2021-07-25] MEDS: BRIMONIDINE 0.2% EYERT SCH ×2 (08:54→20:12)
[2021-07-25] MEDS: Tamsulosin 0.4 MG Cap.ER PO SCH (08:54)
[2021-07-25] MEDS: Cetirizine 10 MG Tab PO SCH (08:55)
[2021-07-25] MEDS: Famotidine 20 MG Tab PO SCH (08:55)
[2021-07-25] MEDS: Memantine 10 MG Tab PO SCH (08:55)
[2021-07-25] MEDS: Furosemide 20 MG Tab PO SCH (08:56)
[2021-07-25] MEDS: Aspirin 81 MG Tab.EC PO SCH (08:56)
[2021-07-25] MEDS: Venlafaxine 75 MG Cap.ER PO SCH (08:56)
[2021-07-25] MEDS: Folic Acid 1 MG Tab PO SCH (08:56)
[2021-07-25] MEDS: Nicotine 7 MG/24 Hr Patch TRDERM SCH (08:56)
[2021-07-25] MEDS: Potassium Chloride 10 MEQ Cap.ER PO SCH (08:56)
[2021-07-25] MEDS: amLODIPine 5 MG Tab PO SCH (11:46)
[2021-07-25] MEDS: Warfarin 5 MG Tab PO SCH (13:49)
[2021-07-25] MEDS: ATROPINE SULFATE OP SCH (20:11)
[2021-07-25] MEDS: LATANOPROST 0.005% EYERT SCH (20:12)
[2021-07-26] MEDS: Acetaminophen 325 MG Tab PO SCH ×4 (02:16→21:13)
[2021-07-26] MEDS: Hypromellose 0.3% Ophth Soln 15 ML Bottle EYERT SCH ×4 (05:44→22:14)
[2021-07-26] MEDS: DEXAMETHASONE 0.1% EYELF SCH ×4 (05:54→22:14)
[2021-07-26] MEDS: OPTH EYELF SCH ×4 (05:54→22:14)
[2021-07-26] MEDS: Enoxaparin 80 MG/0.8 ML Syringe SUBCUT SCH ×2 (09:16→21:15)
[2021-07-26] MEDS: Venlafaxine 75 MG Cap.ER PO SCH (09:17)
[2021-07-26] MEDS: Folic Acid 1 MG Tab PO SCH (09:18)
[2021-07-26] MEDS: Tamsulosin 0.4 MG Cap.ER PO SCH (09:18)
[2021-07-26] MEDS: Aspirin 81 MG Tab.EC PO SCH (09:19)
[2021-07-26] MEDS: amLODIPine 5 MG Tab PO SCH (09:19)
[2021-07-26] MEDS: Famotidine 20 MG Tab PO SCH (09:19)
[2021-07-26] MEDS: Memantine 10 MG Tab PO SCH (09:20)
[2021-07-26] MEDS: Nicotine 7 MG/24 Hr Patch TRDERM SCH ×2 (09:21→15:49)
[2021-07-26] MEDS: Furosemide 20 MG Tab PO SCH (09:21)
[2021-07-26] MEDS: Cetirizine 10 MG Tab PO SCH (09:22)
[2021-07-26] MEDS: Potassium Chloride 10 MEQ Cap.ER PO SCH (09:22)
[2021-07-26] MEDS: OPTH EYERT SCH ×3 (09:23→21:17)
[2021-07-26] MEDS: BRIMONIDINE 0.2% EYERT SCH ×2 (09:23→21:16)
[2021-07-26] MEDS: ClonazePAM 0.5 MG Tab PO PRN ×3 (11:46→22:04)
[2021-07-26] MEDS ORDERED: Warfarin 2.5 MG, Warfarin 5 MG PO SCH ×2 (13:00)
[2021-07-26] MEDS: traMADol 50 MG Tab PO PRN (17:21)
[2021-07-26] MEDS: ATROPINE SULFATE OP SCH (21:15)
[2021-07-26] MEDS: LATANOPROST 0.005% EYERT SCH (21:17)
[2021-07-27] MEDS: Acetaminophen 325 MG Tab PO SCH ×4 (03:44→21:53)
[2021-07-27] MEDS: Hypromellose 0.3% Ophth Soln 15 ML Bottle EYERT SCH ×4 (05:36→21:55)
[2021-07-27] MEDS: OPTH EYELF SCH ×4 (06:35→21:54)
[2021-07-27] MEDS: DEXAMETHASONE 0.1% EYELF SCH ×4 (06:35→21:54)
[2021-07-27] MEDS: traMADol 50 MG Tab PO PRN ×2 (07:42→19:34)
[2021-07-27] MEDS: Famotidine 20 MG Tab PO SCH (09:21)
[2021-07-27] MEDS: Nicotine 7 MG/24 Hr Patch TRDERM SCH (09:21)
[2021-07-27] MEDS: Potassium Chloride 10 MEQ Cap.ER PO SCH (09:22)
[2021-07-27] MEDS: amLODIPine 5 MG Tab PO SCH (09:22)
[2021-07-27] MEDS: Folic Acid 1 MG Tab PO SCH (09:22)
[2021-07-27] MEDS: Aspirin 81 MG Tab.EC PO SCH (09:22)
[2021-07-27] MEDS: Memantine 10 MG Tab PO SCH (09:22)
[2021-07-27] MEDS: Venlafaxine 75 MG Cap.ER PO SCH (09:23)
[2021-07-27] MEDS: Furosemide 20 MG Tab PO SCH (09:23)
[2021-07-27] MEDS: Cetirizine 10 MG Tab PO SCH (09:23)
[2021-07-27] MEDS: Tamsulosin 0.4 MG Cap.ER PO SCH (09:24)
[2021-07-27] MEDS: Enoxaparin 80 MG/0.8 ML Syringe SUBCUT SCH ×2 (09:24→21:54)
[2021-07-27] MEDS: OPTH EYERT SCH ×3 (09:28→21:54)
[2021-07-27] MEDS: BRIMONIDINE 0.2% EYERT SCH ×2 (09:28→21:54)
[2021-07-27] MEDS: Warfarin 5 MG Tab PO SCH (13:24)
[2021-07-27] MEDS: ClonazePAM 0.5 MG Tab PO PRN ×2 (13:25→21:55)
[2021-07-27] MEDS: LATANOPROST 0.005% EYERT SCH (21:53)
[2021-07-27] MEDS: ATROPINE SULFATE OP SCH (21:54)
[2021-07-27] MEDS ORDERED: Melatonin 3 MG Tab PO PRN (22:31)
[2021-07-28] MEDS: Acetaminophen 325 MG Tab PO SCH ×3 (03:03→09:02)
[2021-07-28] MEDS: Hypromellose 0.3% Ophth Soln 15 ML Bottle EYERT SCH ×2 (04:09→09:07)
[2021-07-28] MEDS: OPTH EYELF SCH ×2 (06:49→09:08)
[2021-07-28] MEDS: DEXAMETHASONE 0.1% EYELF SCH ×2 (06:49→09:08)
[2021-07-28] MEDS: Tamsulosin 0.4 MG Cap.ER PO SCH (09:03)
[2021-07-28] MEDS: Nicotine 7 MG/24 Hr Patch TRDERM SCH (09:04)
[2021-07-28] MEDS: Folic Acid 1 MG Tab PO SCH (09:04)
[2021-07-28] MEDS: Venlafaxine 75 MG Cap.ER PO SCH (09:04)
[2021-07-28] MEDS: Enoxaparin 80 MG/0.8 ML Syringe SUBCUT SCH (09:05)
[2021-07-28] MEDS: Aspirin 81 MG Tab.EC PO SCH (09:05)
[2021-07-28] MEDS: Furosemide 20 MG Tab PO SCH (09:05)
[2021-07-28] MEDS: Memantine 10 MG Tab PO SCH (09:05)
[2021-07-28] MEDS: Potassium Chloride 10 MEQ Cap.ER PO SCH (09:06)
[2021-07-28] MEDS: Famotidine 20 MG Tab PO SCH (09:06)
[2021-07-28] MEDS: amLODIPine 5 MG Tab PO SCH (09:06)
[2021-07-28] MEDS: OPTH EYERT SCH (09:07)
[2021-07-28] MEDS: BRIMONIDINE 0.2% EYERT SCH (09:07)
[2021-07-28] MEDS: Cetirizine 10 MG Tab PO SCH (09:07)
[2021-07-28 12:36] VITALS: BP 108/69; PULSE 64
[2021-07-28] MEDS: Warfarin 5 MG Tab PO SCH (12:41)
== END 2021-07-28 13:30 | disposition home health service (06) | DRG 566 ==
LOC: JP.ED 00:29 → JP.MS 03:55 → UNDOADMIN 03:55
PROVIDERS: ADMIT Family Medicine; ATTEND Hospitalist
PROC: 3E1U38Z Irrigation of Joints using Irrigating Substance, Percutaneous Approach (ICD-10-PCS; principal; 2021-07-23)
DX: S76.112A Strain of left quadriceps muscle, fascia and tendon, initial encounter (principal); S80.02XA Contusion of left knee, initial encounter; X50.3XXA Overexertion from repetitive movements, initial encounter; Y93.89 Activity, other specified; M25.461 Effusion, right knee; R79.1 Abnormal coagulation profile; F41.9 Anxiety disorder, unspecified; N40.0 Benign prostatic hyperplasia without lower urinary tract symptoms; F32.A Depression, unspecified; G43.909 Migraine, unspecified, not intractable, without status migrainosus; Z20.822 Contact with and (suspected) exposure to COVID-19; D53.9 Nutritional anemia, unspecified; H54.10 Blindness, one eye, low vision other eye, unspecified eyes; F17.200 Nicotine dependence, unspecified, uncomplicated; H40.9 Unspecified glaucoma; I50.9 Heart failure, unspecified; M19.90 Unspecified osteoarthritis, unspecified site; I11.0 Hypertensive heart disease with heart failure; Z96.643 Presence of artificial hip joint, bilateral; Z79.01 Long term (current) use of anticoagulants; Z95.2 Presence of prosthetic heart valve; Z98.1 Arthrodesis status; Z98.49 Cataract extraction status, unspecified eye; Z79.82 Long term (current) use of aspirin; Z79.899 Other long term (current) drug therapy; Z79.52 Long term (current) use of systemic steroids; Z88.5 Allergy status to narcotic agent; Z88.8 Allergy status to other drugs, medicaments and biological substances
CPT/HCPCS: 0241U; 36415; 73701-LT; 80048; 82550; 85025; 85610; 85730; 87070; 87075; 87205; 97110-GP; 97162-GP; 97530-GP; 97535-GP; A9270-GY; J0690; J1170; J1650; J2704; J3010; J3430; J3490; J7030; Q9967; U0002

== ENCOUNTER 2022-06-26 15:30 | Observation (INO) | payer MEDICARE, BC ==
[2022-06-26 17:49] LABS: CORONAVIRUS COVID-19 NAA NEGATIVE (NEGATIVE)
[2022-06-26] MEDS ORDERED: Magnesium Hydroxide 400 MG/5 ML Susp 30 ML Cup PO PRN (18:04)
[2022-06-26] MEDS ORDERED: Ondansetron 4 MG/2 ML SDV IV PRN (18:04)
[2022-06-26] MEDS ORDERED: Ondansetron 4 MG Tab.DIS PO PRN (18:04)
[2022-06-26] MEDS ORDERED: Morphine 2 MG/ML SYRINGE IVPUSH PRN (18:04)
[2022-06-26] MEDS ORDERED: DEXAMETHASONE 0.1% EYELF PRN (18:12)
[2022-06-26] MEDS ORDERED: Memantine 5 MG Tab PO SCH (21:00)
[2022-06-26] MEDS: EYE EYERT SCH (22:14)
[2022-06-26] MEDS: BRIMONIDINE 0.2% EYERT SCH (22:14)
[2022-06-26] MEDS: ATROPINE 1% EYELF SCH (22:14)
[2022-06-26] MEDS: LATANOPROST 0.005% EYERT SCH (22:14)
[2022-06-26] MEDS: MEMANTINE 5 MG PO SCH (22:15)
[2022-06-26] MEDS: Acetaminophen 325 MG Tab PO PRN (22:18)
[2022-06-26] MEDS: Melatonin 3 MG Tab PO SCH (22:19)
[2022-06-26] MEDS: ClonazePAM 0.5 MG Tab PO PRN (22:19)
[2022-06-27] MEDS: Melatonin 3 MG Tab PO SCH ×2 (01:12→21:18)
[2022-06-27] MEDS: traMADol 50 MG Tab PO PRN ×4 (01:15→19:39)
[2022-06-27 06:04] LABS: ESTIMATED GFR 75 mL/min (>60)
[2022-06-27] MEDS ORDERED: Famotidine 20 MG Tab PO SCH (09:00)
[2022-06-27] MEDS ORDERED: Venlafaxine 75 MG Cap.ER PO SCH (09:00)
[2022-06-27] MEDS: ClonazePAM 0.5 MG Tab PO PRN (09:05)
[2022-06-27] MEDS: Folic Acid 1 MG Tab PO SCH (09:06)
[2022-06-27] MEDS: Aspirin 81 MG Tab.EC PO SCH (09:06)
[2022-06-27] MEDS: NICOTINE 14 MG/24 HR TRDERM SCH (09:07)
[2022-06-27] MEDS: POTASSIUM CHLORIDE 10 MEQ PO SCH (09:07)
[2022-06-27] MEDS: VENLAFAXINE 150 MG PO SCH (09:07)
[2022-06-27] MEDS: CETIRIZINE 10 MG PO SCH (09:08)
[2022-06-27] MEDS: Furosemide 20 MG Tab*POM PO SCH (09:08)
[2022-06-27] MEDS: Tamsulosin 0.4 MG Cap.ER*POM PO SCH (09:08)
[2022-06-27] MEDS: AMLODIPINE 5 MG PO SCH (09:34)
[2022-06-27] MEDS: MEMANTINE 5 MG PO SCH ×2 (09:39→21:18)
[2022-06-27] MEDS: BRIMONIDINE 0.2% EYERT SCH ×2 (09:39→21:19)
[2022-06-27] MEDS: CIMETIDINE 400 MG PO SCH (10:39)
[2022-06-27] MEDS ORDERED: Warfarin 5 MG Tab (PTOM) PO ONE (13:00)
[2022-06-27] MEDS ORDERED: Morphine 2 MG/ML SYRINGE IVPUSH PRN (15:10)
[2022-06-27] MEDS: Cholecalciferol (Vitamin D3) 25 MCG Tab PO SCH (15:19)
[2022-06-27] MEDS: Acetaminophen 325 MG Tab PO PRN (17:02)
[2022-06-27] MEDS: LATANOPROST 0.005% EYERT SCH (21:20)
[2022-06-27] MEDS: EYE EYERT SCH (21:20)
[2022-06-27] MEDS: ATROPINE 1% EYELF SCH (21:20)
[2022-06-28] MEDS: ClonazePAM 0.5 MG Tab PO PRN (01:41)
[2022-06-28] MEDS: Acetaminophen 325 MG Tab PO PRN ×2 (01:41→12:11)
[2022-06-28 05:35] LABS: ESTIMATED GFR 75 mL/min (>60)
[2022-06-28] MEDS: CIMETIDINE 400 MG PO SCH (08:58)
[2022-06-28] MEDS: VENLAFAXINE 150 MG PO SCH (08:59)
[2022-06-28] MEDS: BRIMONIDINE 0.2% EYERT SCH (08:59)
[2022-06-28] MEDS: Folic Acid 1 MG Tab PO SCH (09:00)
[2022-06-28] MEDS: Tamsulosin 0.4 MG Cap.ER*POM PO SCH (09:00)
[2022-06-28] MEDS: Aspirin 81 MG Tab.EC PO SCH (09:01)
[2022-06-28] MEDS: NICOTINE 14 MG/24 HR TRDERM SCH (09:01)
[2022-06-28] MEDS: Furosemide 20 MG Tab*POM PO SCH (09:01)
[2022-06-28] MEDS: MEMANTINE 5 MG PO SCH (09:02)
[2022-06-28] MEDS: POTASSIUM CHLORIDE 10 MEQ PO SCH (09:03)
[2022-06-28] MEDS: CETIRIZINE 10 MG PO SCH (09:03)
[2022-06-28] MEDS: Cholecalciferol (Vitamin D3) 25 MCG Tab PO SCH (09:03)
[2022-06-28] MEDS: AMLODIPINE 5 MG PO SCH (10:22)
[2022-06-28] MEDS: traMADol 50 MG Tab PO PRN (12:10)
[2022-06-28 12:53] VITALS: BP 114/70; PULSE 66
[2022-06-28] MEDS ORDERED: Warfarin 5 MG Tab (PTOM) PO SCH (13:00)
[2022-06-30] MEDS ORDERED: Warfarin 5 MG, Warfarin 2.5 MG PO SCH ×2 (13:00)
[2022-06-30] MEDS ORDERED: Warfarin 5 MG Tab*POM PO SCH (13:00)
== END 2022-06-28 15:37 | disposition home or self-care (01) ==
LOC: JP.ED 15:30 → JP.MS 17:35
PROVIDERS: ADMIT Hospitalist; ATTEND Student in an Organized Health Care Education/Training Program
DX: S72.111A Displaced fracture of greater trochanter of right femur, initial encounter for closed fracture (principal); I50.9 Heart failure, unspecified; N40.0 Benign prostatic hyperplasia without lower urinary tract symptoms; G43.909 Migraine, unspecified, not intractable, without status migrainosus; F41.9 Anxiety disorder, unspecified; F32.A Depression, unspecified; F17.210 Nicotine dependence, cigarettes, uncomplicated; M19.90 Unspecified osteoarthritis, unspecified site; Z79.899 Other long term (current) drug therapy; Z79.82 Long term (current) use of aspirin; Z79.01 Long term (current) use of anticoagulants; Z88.5 Allergy status to narcotic agent; Z88.8 Allergy status to other drugs, medicaments and biological substances; Z98.890 Other specified postprocedural states; Z98.1 Arthrodesis status; Z20.822 Contact with and (suspected) exposure to COVID-19; W19.XXXA Unspecified fall, initial encounter
CPT/HCPCS: 0241U; 36415; 73502; 80048; 80053; 83735; 85025; 85027; 85610; 97116; 97162; 97165; 97530; 97535; 99222; 99232; 99238; 99284; A9270; G0378; 99285

== ENCOUNTER 2022-07-07 13:59 | Inpatient (IN) | payer MEDICARE, BC ==
[2022-07-07] MEDS ORDERED: fentaNYL 50 MCG/ML SDV IVPUSH ONE (14:51)
[2022-07-07 15:10] LABS: ESTIMATED GFR 60 mL/min (>60)
[2022-07-07] MEDS ORDERED: Methocarbamol 500 MG Tab PO ONE (16:41)
[2022-07-07 18:54] LABS: CORONAVIRUS COVID-19 NAA NEGATIVE (NEGATIVE)
[2022-07-07] MEDS ORDERED: traMADol 50 MG Tab PO ONE (19:31)
[2022-07-07] MEDS ORDERED: Nicotine 14 MG/24 Hr Patch TRDERM SCH (20:33)
[2022-07-07] MEDS ORDERED: Ondansetron 4 MG Tab.DIS PO PRN (20:33)
[2022-07-07] MEDS ORDERED: Methocarbamol 500 MG Tab PO PRN (20:33)
[2022-07-07] MEDS ORDERED: Bisacodyl 5 MG Tab PO PRN (20:33)
[2022-07-07] MEDS ORDERED: Trolamine Salicylate/Aloe Vera 10% Crm 85 GM Tube TOP SCH (20:33)
[2022-07-07] MEDS ORDERED: Albuterol/Ipratropium 3.0-0.5 MG/3 ML Neb Soln NEB PRN (20:33)
[2022-07-07] MEDS ORDERED: Albuterol 0.083% 2.5 MG/3 ML Neb Soln NEB PRN (20:33)
[2022-07-07] MEDS ORDERED: Pantoprazole 40 MG Vial IV SCH (21:00)
[2022-07-07] MEDS ORDERED: ATROPINE 1% EYELF SCH (21:00)
[2022-07-07] MEDS ORDERED: Trolamine Salicylate/Aloe Vera 10% Crm 85 GM Tube TOP PRN (22:00)
[2022-07-07] MEDS: diphenhydrAMINE 25 MG Cap PO SCH (22:06)
[2022-07-07] MEDS: Magnesium Oxide 400 MG Tab PO SCH (22:06)
[2022-07-07] MEDS: Sodium Chloride 0.9% 1,000 ML IV SCH (22:07)
[2022-07-07] MEDS: Memantine 5 MG Tab PO SCH (22:07)
[2022-07-08] MEDS: Acetaminophen 325 MG Tab PO PRN ×2 (02:08→20:11)
[2022-07-08] MEDS: traMADol 50 MG Tab PO PRN ×3 (02:08→20:10)
[2022-07-08] MEDS: Sodium Chloride 0.9% 1,000 ML IV SCH (06:16)
[2022-07-08] MEDS ORDERED: FERROUS SULFATE DRIED 159 MG PO SCH (09:00)
[2022-07-08] MEDS ORDERED: Furosemide 40 MG Tab PO SCH (09:00)
[2022-07-08] MEDS: NICOTINE 14 MG/24 HR TRDERM SCH (09:05)
[2022-07-08] MEDS: Ferrous Sulfate 325 MG Tab PO SCH (09:09)
[2022-07-08] MEDS: Tamsulosin 0.4 MG Cap.ER PO SCH (09:09)
[2022-07-08] MEDS: Venlafaxine 75 MG Cap.ER PO SCH (09:09)
[2022-07-08] MEDS: Memantine 5 MG Tab PO SCH ×2 (09:10→20:04)
[2022-07-08] MEDS: Potassium Chloride 10 MEQ Cap.ER PO SCH (09:10)
[2022-07-08] MEDS: amLODIPine 5 MG Tab PO SCH (09:10)
[2022-07-08] MEDS: Magnesium Oxide 400 MG Tab PO SCH (09:10)
[2022-07-08] MEDS: Famotidine 20 MG Tab PO SCH (09:10)
[2022-07-08] MEDS: Furosemide 20 MG Tab PO SCH (09:11)
[2022-07-08] MEDS: Aspirin 81 MG Tab.EC PO SCH (09:11)
[2022-07-08] MEDS: Vitamin B Complex Tab PO SCH (09:11)
[2022-07-08] MEDS: Folic Acid 1 MG Tab PO SCH (09:11)
[2022-07-08] MEDS: Cetirizine 10 MG Tab PO SCH (09:11)
[2022-07-08] MEDS: Multivitamins with Iron/Calcium/Folic Acid/Minerals Tab PO SCH (09:11)
[2022-07-08] MEDS: BRIMONIDINE EYERT SCH ×2 (09:17→20:08)
[2022-07-08] MEDS ORDERED: Warfarin 5 MG Tab PO SCH ×2 (13:10)
[2022-07-08] MEDS: ClonazePAM 0.5 MG Tab PO PRN ×2 (13:18→20:11)
[2022-07-08] MEDS: Warfarin 5 MG Tab PO SCH (13:56)
[2022-07-08] MEDS: ATROPINE OP SCH (20:03)
[2022-07-08] MEDS: Latanoprost 0.005% Ophth Soln (PTOM) EYERT SCH (20:03)
[2022-07-08] MEDS: diphenhydrAMINE 25 MG Cap PO SCH (20:04)
[2022-07-08] MEDS: Pantoprazole 40 MG Tab.CR PO SCH (20:05)
[2022-07-08] MEDS ORDERED: DORZOLAMIDE EYERT SCH (21:00)
[2022-07-08] MEDS ORDERED: TIMOLOL EYERT SCH (21:00)
[2022-07-09] MEDS: Acetaminophen 325 MG Tab PO PRN ×3 (01:25→20:21)
[2022-07-09] MEDS: traMADol 50 MG Tab PO PRN ×2 (01:25→11:14)
[2022-07-09] MEDS: Ferrous Sulfate 325 MG Tab PO SCH (08:36)
[2022-07-09] MEDS: Docusate Sodium 100 MG Cap PO PRN (08:36)
[2022-07-09] MEDS: Venlafaxine 75 MG Cap.ER PO SCH (08:36)
[2022-07-09] MEDS: Potassium Chloride 10 MEQ Cap.ER PO SCH (08:36)
[2022-07-09] MEDS: Furosemide 20 MG Tab PO SCH (08:36)
[2022-07-09] MEDS: Magnesium Oxide 400 MG Tab PO SCH (08:37)
[2022-07-09] MEDS: Vitamin B Complex Tab PO SCH (08:37)
[2022-07-09] MEDS: Memantine 5 MG Tab PO SCH ×2 (08:37→20:20)
[2022-07-09] MEDS: Folic Acid 1 MG Tab PO SCH (08:37)
[2022-07-09] MEDS: Tamsulosin 0.4 MG Cap.ER PO SCH (08:37)
[2022-07-09] MEDS: Aspirin 81 MG Tab.EC PO SCH (08:37)
[2022-07-09] MEDS: Cetirizine 10 MG Tab PO SCH (08:37)
[2022-07-09] MEDS: Multivitamins with Iron/Calcium/Folic Acid/Minerals Tab PO SCH (08:37)
[2022-07-09] MEDS: amLODIPine 5 MG Tab PO SCH (08:37)
[2022-07-09] MEDS: Famotidine 20 MG Tab PO SCH (08:38)
[2022-07-09] MEDS: DEXAMETHASONE EYELF PRN ×2 (08:45→16:27)
[2022-07-09] MEDS: DORZOLAMIDE EYERT SCH ×2 (08:45→16:26)
[2022-07-09] MEDS: TIMOLOL EYERT SCH ×2 (08:45→16:26)
[2022-07-09] MEDS: BRIMONIDINE EYERT SCH ×2 (08:45→16:26)
[2022-07-09] MEDS: NICOTINE 14 MG/24 HR TRDERM SCH (08:49)
[2022-07-09] MEDS: ClonazePAM 0.5 MG Tab PO PRN ×2 (11:14→20:21)
[2022-07-09] MEDS: Warfarin 5 MG Tab PO SCH (12:19)
[2022-07-09] MEDS: ATROPINE OP SCH (20:19)
[2022-07-09] MEDS: diphenhydrAMINE 25 MG Cap PO SCH (20:20)
[2022-07-09] MEDS: Pantoprazole 40 MG Tab.CR PO SCH (20:21)
[2022-07-09] MEDS: Latanoprost 0.005% Ophth Soln (PTOM) EYERT SCH (20:22)
[2022-07-09] MEDS ORDERED: Melatonin 3 MG Tab PO PRN (22:55)
[2022-07-10] MEDS: Acetaminophen 325 MG Tab PO PRN ×3 (05:00→21:44)
[2022-07-10] MEDS: Docusate Sodium 100 MG Cap PO PRN (05:03)
[2022-07-10] MEDS: Aspirin 81 MG Tab.EC PO SCH (08:30)
[2022-07-10] MEDS: Multivitamins with Iron/Calcium/Folic Acid/Minerals Tab PO SCH (08:30)
[2022-07-10] MEDS: amLODIPine 5 MG Tab PO SCH (08:30)
[2022-07-10] MEDS: Ferrous Sulfate 325 MG Tab PO SCH (08:30)
[2022-07-10] MEDS: Venlafaxine 75 MG Cap.ER PO SCH (08:30)
[2022-07-10] MEDS: Magnesium Oxide 400 MG Tab PO SCH (08:31)
[2022-07-10] MEDS: Cetirizine 10 MG Tab PO SCH (08:31)
[2022-07-10] MEDS: Famotidine 20 MG Tab PO SCH (08:31)
[2022-07-10] MEDS: Folic Acid 1 MG Tab PO SCH (08:31)
[2022-07-10] MEDS: Vitamin B Complex Tab PO SCH (08:31)
[2022-07-10] MEDS: Tamsulosin 0.4 MG Cap.ER PO SCH (08:31)
[2022-07-10] MEDS: Potassium Chloride 10 MEQ Cap.ER PO SCH (08:31)
[2022-07-10] MEDS: Memantine 5 MG Tab PO SCH ×2 (08:31→21:42)
[2022-07-10] MEDS: TIMOLOL EYERT SCH ×2 (08:32→16:34)
[2022-07-10] MEDS: BRIMONIDINE EYERT SCH ×2 (08:32→16:34)
[2022-07-10] MEDS: DORZOLAMIDE EYERT SCH ×2 (08:32→16:34)
[2022-07-10] MEDS: Furosemide 20 MG Tab PO SCH (08:32)
[2022-07-10] MEDS: NICOTINE 14 MG/24 HR TRDERM SCH (08:32)
[2022-07-10] MEDS: DEXAMETHASONE EYELF PRN ×2 (08:33→16:33)
[2022-07-10] MEDS ORDERED: Warfarin 5 MG, Warfarin 2.5 MG PO ONE ×2 (13:00)
[2022-07-10] MEDS: ClonazePAM 0.5 MG Tab PO PRN ×2 (18:25→21:43)
[2022-07-10] MEDS: ATROPINE OP SCH (21:40)
[2022-07-10] MEDS: Latanoprost 0.005% Ophth Soln (PTOM) EYERT SCH (21:40)
[2022-07-10] MEDS: Pantoprazole 40 MG Tab.CR PO SCH (21:43)
[2022-07-10] MEDS: diphenhydrAMINE 25 MG Cap PO SCH (21:43)
[2022-07-11] MEDS: Acetaminophen 325 MG Tab PO PRN ×2 (02:27→11:39)
[2022-07-11] MEDS: Tamsulosin 0.4 MG Cap.ER PO SCH (08:24)
[2022-07-11] MEDS: NICOTINE 14 MG/24 HR TRDERM SCH (08:24)
[2022-07-11] MEDS: Ferrous Sulfate 325 MG Tab PO SCH (08:25)
[2022-07-11] MEDS: Venlafaxine 75 MG Cap.ER PO SCH (08:25)
[2022-07-11] MEDS: amLODIPine 5 MG Tab PO SCH (08:25)
[2022-07-11] MEDS: Folic Acid 1 MG Tab PO SCH (08:25)
[2022-07-11] MEDS: Cetirizine 10 MG Tab PO SCH (08:26)
[2022-07-11] MEDS: Famotidine 20 MG Tab PO SCH (08:26)
[2022-07-11] MEDS: Vitamin B Complex Tab PO SCH (08:26)
[2022-07-11] MEDS: Aspirin 81 MG Tab.EC PO SCH (08:26)
[2022-07-11] MEDS: Magnesium Oxide 400 MG Tab PO SCH (08:26)
[2022-07-11] MEDS: Multivitamins with Iron/Calcium/Folic Acid/Minerals Tab PO SCH (08:26)
[2022-07-11] MEDS: Memantine 5 MG Tab PO SCH (08:27)
[2022-07-11] MEDS: Furosemide 20 MG Tab PO SCH (08:27)
[2022-07-11] MEDS: Potassium Chloride 10 MEQ Cap.ER PO SCH (08:27)
[2022-07-11] MEDS: DORZOLAMIDE EYERT SCH (08:28)
[2022-07-11] MEDS: TIMOLOL EYERT SCH (08:28)
[2022-07-11] MEDS: BRIMONIDINE EYERT SCH (08:29)
[2022-07-11 10:41] VITALS: BP 89/58; PULSE 72
[2022-07-11] MEDS ORDERED: Warfarin 2.5 MG Tab PO ONE (13:00)
== END 2022-07-11 12:41 | DRG 948 ==
LOC: JP.ED 13:59 → JP.MS 20:08
PROVIDERS: ADMIT Hospitalist; ATTEND Hospitalist
DX: R53.1 Weakness (principal); I48.20 Chronic atrial fibrillation, unspecified; W18.30XA Fall on same level, unspecified, initial encounter; E86.0 Dehydration; N40.0 Benign prostatic hyperplasia without lower urinary tract symptoms; S19.9XXA Unspecified injury of neck, initial encounter; W07.XXXA Fall from chair, initial encounter; H40.9 Unspecified glaucoma; F32.A Depression, unspecified; G43.909 Migraine, unspecified, not intractable, without status migrainosus; I50.9 Heart failure, unspecified; Z66 Do not resuscitate; K59.09 Other constipation; S66.911A Strain of unspecified muscle, fascia and tendon at wrist and hand level, right hand, initial encounter; S16.1XXA Strain of muscle, fascia and tendon at neck level, initial encounter; M19.90 Unspecified osteoarthritis, unspecified site; F41.9 Anxiety disorder, unspecified; L40.9 Psoriasis, unspecified; Z96.643 Presence of artificial hip joint, bilateral; Z20.822 Contact with and (suspected) exposure to COVID-19; H54.10 Blindness, one eye, low vision other eye, unspecified eyes; M54.50 Low back pain, unspecified; Z79.82 Long term (current) use of aspirin; Z79.899 Other long term (current) drug therapy; Z79.01 Long term (current) use of anticoagulants; Z98.49 Cataract extraction status, unspecified eye; Z87.891 Personal history of nicotine dependence; Y92.098 Other place in other non-institutional residence as the place of occurrence of the external cause; Z95.2 Presence of prosthetic heart valve
CPT/HCPCS: 0241U; 36415; 70450; 70450-26; 72125; 72125-26; 731102650; 73110-50; 76377; 80048; 80053; 81001; 83735; 85025; 85610; 93005; 96374; 97110-GO; 97110-GP; 97116-GP; 97162-GP; 97165-GO; 97530-GP; 97535-GO; 97535-GP; 99222; 99232; 99238; 99285-25; A9270-GY; C9113; J3010; J7030

== ENCOUNTER 2022-09-06 04:41 | Emergency (ER) | payer MEDICARE, BC ==
[2022-09-06 05:06] VITALS: BP 140/95; PULSE 71
[2022-09-06 05:19] LABS: BASOPHILS ABSOLUTE AUTO 0.06 K/uL (0.00-0.10); BASOPHILS PERCENT AUTO 1.3 % (0.1-1.3); EOSINOPHILS PERCENT AUTO 4.3 % (0.0-5.4); HEMATOCRIT 33.1 % (38.4-49.7); HEMOGLOBIN 10.6 g/dL (12.9-16.9); IMMATURE GRAN PERCENT AUTO 0.2 % (0.0-0.7); LYMPHOCYTES ABSOLUTE AUTO 0.88 K/uL (0.8-3.3); MEAN CORPUSCULAR HEMOGLOBIN 33.8 pg (31.6-35.5); MEAN CORPUSCULAR VOLUME 105.4 fL (81.4-99.0); MONOCYTES ABSOLUTE AUTO 0.59 K/uL (0.20-0.90); MONOCYTES PERCENT AUTO 12.8 % (3.3-12.6); NEUTROPHILS ABSOLUTE AUTO 2.88 K/uL (1.0-7.6); NEUTROPHILS PERCENT AUTO 62.4 % (40.0-78.1); PLATELET COUNT,PLT 186 K/uL (130-375); RED BLOOD CELL COUNT 3.14 M/uL (4.14-5.76); WHITE BLOOD CELL COUNT,WBC 4.6 K/uL (3.2-11.0)
[2022-09-06 05:25] LABS: IMMATURE GRAN ABSOLUTE AUTO 0.01 K/uL (0.00-0.23)
[2022-09-06 05:38] LABS: BLOOD UREA NITROGEN,BUN 8 mg/dL (7-18); CALCIUM 8.7 mg/dL (8.5-10.1); CARBON DIOXIDE,CO2 25 mmol/L (21-32); CHLORIDE,CL 100 mmol/L (100-108); CREATININE 0.7 mg/dL (0.8-1.3); ESTIMATED GFR 92 mL/min (>60); GLUCOSE RANDOM 101 mg/dL (74-106); INR 1.3; POTASSIUM,K 3.6 mmol/L (3.6-5.2); PROTHROMBIN TIME 13.4 sec (9.2-10.6); SODIUM,NA 134 mmol/L (140-148); TROPONIN I HIGH SENSITIVITY 22.5 pg/mL (<=60.3)
[2022-09-06 05:39] LABS: ANION GAP 12.6 mmol/L (5.0-14.0)
== END 2022-09-06 06:05 | disposition home or self-care (01) ==
LOC: JP.ED 04:41
DX: R07.89 Other chest pain (principal); S00.12XA Contusion of left eyelid and periocular area, initial encounter; R06.02 Shortness of breath; N40.0 Benign prostatic hyperplasia without lower urinary tract symptoms; Z88.5 Allergy status to narcotic agent; Z88.8 Allergy status to other drugs, medicaments and biological substances; Z79.82 Long term (current) use of aspirin; Z79.01 Long term (current) use of anticoagulants; Z79.899 Other long term (current) drug therapy
CPT/HCPCS: 36415; 80048; 84484; 85025; 85610; 93005; 99285

== ENCOUNTER 2022-10-03 14:09 | Emergency (ER) | payer MEDICARE, BC ==
[2022-10-03] MEDS ORDERED: Sodium Chloride 0.9% 10 ML Syringe FLUSH PRN (14:10)
[2022-10-03 14:18] LABS: BASOPHILS ABSOLUTE AUTO 0.04 K/uL (0.00-0.10); BASOPHILS PERCENT AUTO 0.5 % (0.1-1.3); EOSINOPHILS PERCENT AUTO 0.1 % (0.0-5.4); HEMATOCRIT 44.2 % (38.4-49.7); IMMATURE GRAN ABSOLUTE AUTO 0.05 K/uL (0.00-0.23); IMMATURE GRAN PERCENT AUTO 0.6 % (0.0-0.7); LYMPHOCYTES ABSOLUTE AUTO 0.61 K/uL (0.8-3.3); LYMPHOCYTES PERCENT AUTO 7.2 % (11.4-47.7); MEAN CORPUSCULAR HEMOGLOBIN 34.1 pg (31.6-35.5); MEAN CORPUSCULAR HGB CONC 31.7 g/dL (31.6-35.5); MEAN CORPUSCULAR VOLUME 107.8 fL (81.4-99.0); MONOCYTES ABSOLUTE AUTO 1.01 K/uL (0.20-0.90); MONOCYTES PERCENT AUTO 11.9 % (3.3-12.6); NEUTROPHILS PERCENT AUTO 79.7 % (40.0-78.1); PLATELET COUNT,PLT 232 K/uL (130-375); WHITE BLOOD CELL COUNT,WBC 8.5 K/uL (3.2-11.0)
[2022-10-03 14:20] LABS: EOSINOPHILS ABSOLUTE AUTO 0.01 K/uL (0.00-0.40)
[2022-10-03 14:36] LABS: INR 3.6; PROTHROMBIN TIME 33.4 sec (9.2-10.6); PTT,PARTIAL THROMBOPLSTIN TIME 33.4 sec (21.8-27.3)
[2022-10-03 14:40] LABS: A/G RATIO 0.8 (1.2-2.2); ALANINE AMINOTRANSFERASE,ALT 96 U/L (12-78); ALBUMIN 3.2 g/dL (3.4-5.0); ALKALINE PHOSPHATASE 112 U/L (46-116); ASPARTATE AMNIOTRANSFERASE,AST 133 U/L (15-37); BILIRUBIN TOTAL 2.4 mg/dL (0.2-1.0); BLOOD UREA NITROGEN,BUN 16 mg/dL (7-18); CALCIUM 9.1 mg/dL (8.5-10.1); CARBON DIOXIDE,CO2 27 mmol/L (21-32); CHLORIDE,CL 100 mmol/L (100-108); CREATININE 0.9 mg/dL (0.8-1.3); ESTIMATED GFR 85 mL/min (>60); GLUCOSE RANDOM 119 mg/dL (74-106); SODIUM,NA 134 mmol/L (140-148); TROPONIN I HIGH SENSITIVITY 48.1 pg/mL (<=60.3)
[2022-10-03] MEDS ORDERED: Albuterol/Ipratropium 3.0-0.5 MG/3 ML Neb Soln NEB ONE (16:04)
[2022-10-03 17:05] VITALS: BP 148/107; PULSE 114
[2022-10-03 18:07] LABS: APPEARANCE,URINE CLEAR (CLEAR); BILIRUBIN,URINE MODERATE (NEGATIVE); COLOR,URINE YELLOW (YELLOW); GLUCOSE,URINE NEGATIVE (NEGATIVE); KETONES,URINE NEGATIVE (NEGATIVE); LEUKOCYTE ESTERASE,URINE NEGATIVE (NEGATIVE); NITRITE,URINE NEGATIVE (NEGATIVE); OCCULT BLOOD,URINE TRACE-INTACT (NEGATIVE); PH,URINE 5.5 (5.0-8.0); PROTEIN,URINE >=300 mg/dL (NEGATIVE)
[2022-10-03 18:12] LABS: AMORPHOUS SEDIMENT,URINE FEW; BACTERIA,URINE FEW; EPITHELIAL CELLS,URINE RARE; MUCUS,URINE NOT SEEN; RBC,URINE 0-5 (0-5); WBC,URINE 0-5 (0-5)
== END 2022-10-03 18:55 | disposition home or self-care (01) ==
LOC: JP.ED 14:09
DX: R47.89 Other speech disturbances (principal); I48.91 Unspecified atrial fibrillation; I50.9 Heart failure, unspecified; M19.90 Unspecified osteoarthritis, unspecified site; Z79.82 Long term (current) use of aspirin; Z79.01 Long term (current) use of anticoagulants; Z88.5 Allergy status to narcotic agent; Z88.8 Allergy status to other drugs, medicaments and biological substances
CPT/HCPCS: 36415; 70450; 70450-26; 71046; 71046-26; 80053; 81001; 84484; 85025; 85610; 85730; 93005; 94640; 99285; J7620